=== PATIENT | male | born 1945 | race Caucasian/White ===

== ENCOUNTER 2023-09-29 06:34 | Inpatient (IN) ==
[2023-09-29] MEDS ORDERED: CEFEPIME 2,000 MG/20 ML VIAL IV STA (06:51)
--- NOTE | 2023-09-29 06:54 | Emergency Department Note ---
Impression & Plan Hypoxia, Lung cancer, Pleural effusion, Acidosis, lactic, LINDA (acute kidney injury) ED Provider Note NAME: ANI GARCIA AGE: 77 SEX: M : 1945 ARRIVES VIA: Ambulance INFORMANT: Patient ED PROVIDER(S): Raudel Flower DO CHIEF COMPLAINT: weakness HPI: Patient is a 77-year-old gentleman who presents to the ER for weakness with a past medical history of small cell lung cancer. Last dose of chemo was about a month ago. He had pleural effusion drained at [facility] within the last month. He notes the weakness has been getting worse today. He slid out of his chair and was unable to get himself back up. Denies any head strike. No head or neck pain. No chest pain but has shortness of breath which has been getting worse over a month. Denies any belly pain nausea vomiting or diarrhea. No dysuria urgency or frequency. He notes he has not been eating or drinking much at all. No fevers. ADDITIONAL HISTORY OBTAINED: Per HPI Chronic Medical/Social Conditions Affecting Care: Per HPI PAST MEDICAL HISTORY:See Below PAST SURGICAL HISTORY:See Below FAMILY HISTORY:See Below SOCIAL HISTORY:See Below HOME MEDICATIONS:See Below ALLERGIES:See Below VITALS:See Below PHYSICAL EXAMINATION: GENERAL: Sitting up in bed, alert, chronically ill-appearing, disheveled EYE EXAM: normal conjunctiva. OROPHARYNX: no exudate, no erythema, lips, buccal mucosa, and tongue normal and mucous membranes are moist NECK: supple, no nuchal rigidity, no adenopathy, non-tender LUNGS: Clear to auscultation. Normal chest wall mechanics HEART: no murmurs, S1 normal and S2 normal ABDOMEN: abdomen soft, non-tender, normo-active bowel sounds, no masses, no rebound or guarding. UPPER EXTREMITIES: upper extremities are grossly normal. LOWER EXTREMITIES: Pitting edema in the bilateral lower extremities NEURO EXAM: Normal sensorium, cranial nerves II-XII grossly intact, normal speech, no gross weakness of arms, no gross weakness of legs. MEDICAL DECISION MAKING: Patient is a 77-year-old male who presents the ER with a past medical history of A-fib, COPD and a solitary kidney for weakness and shortness of breath. Outpatient records reviewed which showed an EF of greater than 60% per 2 boys/[facility] records from cardiology. IV was established blood work was obtained. Labs show no significant leukocytosis but a mild anemia 11.5. We did have a recent blood transfusion. VBG with a pH of 7.23 and a CO2 of 51. BMP with a creatinine of 2.5 up from a baseline of about a 1.6. Lactate was significantly elevated at 3.8. T. bili at 1.3. LFTs were unremarkable. Troponin was negative. proBNP only at 460. Pro-Mahin was negative. UA was contaminated. Patient was given 2.5 L of normal saline. Systolic pressures trended up out of the 80s to the upper 90s. He was fluid responsive. Discussed case with Dr. Lord who evaluated the patient. Discussed case with Dr. Kaerns as well from the liquid flavor compounder/pulmonology standpoint. SBP 99/55 and improving with IV boluses at 0848. Pt was admitted at 0930. Please refer to Dr. Jalloh's note for further management and treatment. He was resting comfortably on 4 L. He is in no respiratory distress. Consults/Care Managements Discussions: Per [facility] Triage Nursing notes reviewed. Limited review of prior medical records performed Vital Signs: reviewed and remarkable for hypoxic Differential diagnosis: Differential diagnoses includes but is not limited to pneumonia, bronchitis, COPD/Asthma exacerbation, pneumothorax, pulmonary embolism, congestive heart failure, acute coronary syndrome ER treatment provided: See below Diagnostics interpreted by me include EKG and cardiac monitoring as listed below: -Cardiac Monitoring: An order was placed for continuous cardiac monitoring. The monitor shows a rate of 68 with sinus rhythm. -ECG: Sinus rhythm rate of 66 Low voltage Normal axis No PVCs QTc 457 -Laboratory studies:Interpreted by me as stated above in MDM and shown below. Imaging studies: Xrays: As interpreted by me: Portable upright 1 view of the chest shows complete opacification of right chest CTs show: none Procedures:none Critical Care: I have personally spent 31 minutes of critical care time in the direct management of this patient. This includes bedside care, interpretation of diagnostic studies, and testing, discussion with consultants, patient, and family members, and other required patient management activities. This 31 minutes is in excess of all separately billable procedures. Past Med/Surg History Medical History Insomnia DJD (degenerative joint disease) A-fib Arthritis H/O renal calculi Surgical History History of appendectomy S/p nephrectomy S/P lymph node biopsy S/P cataract surgery Family History Aunt Breast cancer Mother Heart disease Myocardial infarction Father Melanoma Denies family history of Ovarian cancer Prostate cancer Colorectal cancer Social History Smoking Status: Former smoker Tobacco Type: Cigarettes Age Started Using Tobacco: 19; Age Quit Using Tobacco: 61; packs per day: 2; Second Hand Exposure: No; Do You Dip or Chew Tobacco: No; Hx Alcohol Use: Yes Alcohol type: beer Alcohol Intake Frequency: Monthly or Less Hx Substance Use: No Preferred Language: Chinese Visual Impairment: No Limitations Hearing Ability: Normal marital status: / Current Living Situation: Family Current Living Situation Comment: lives with daughter How many Children do You have: 4 Feels Safe at Home: Yes Childhood Exposure to Second-Hand Smoke: No Diet: regular Diet Comment: low acidity Dental Care, Regularly: No Physical Activity Frequency: Does not Exercise Seatbelt Use: always Sunscreen Use: No Assistive Devices: Glasses Allergies Allergies Allergy/AdvReac Type Severity Reaction Status Date / Time No Known Drug Allergies Allergy Verified 09/09/23 13:43 Home Meds Home Medications Medication Instructions Recorded Confirmed allopurinol 100 mg tablet 100 mg PO DAILY 08/07/23 09/09/23 bisoprolol fumarate 5 mg tablet 10 mg PO DAILY 08/07/23 09/09/23 cholecalciferol (vitamin D3) 25 25 mcg PO DAILY 08/07/23 09/09/23 mcg (1,000 unit) capsule hydralazine 50 mg tablet 50 mg PO TID 08/07/23 09/09/23 hydrocodone 5 mg-acetaminophen 325 0.5 tab PO DAILY PRN 08/07/23 09/09/23 mg tablet tamsulosin 0.4 mg capsule 0.4 mg PO DAILY 08/07/23 09/09/23 mecobalamin (vitamin B12) 500 mcg mcg PO .qd 09/08/23 09/09/23 chewable tablet Previous Rx's Medication Instructions Recorded levalbuterol tartrate 45 See Rx Instructions inhalation 08/07/23 mcg/actuation aerosol inhaler .COMPLEX PRN shortness of breath (Xopenex HFA) or wheezing #15 grams umeclidinium 62.5 mcg-vilanterol 1 inh inhalation DAILY #60 ea 08/07/23 25 mcg/actuation powdr for inhalation (Anoro Ellipta) levothyroxine 50 mcg tablet 50 mcg PO DAILY #90 tabs 08/11/23 (Synthroid) hydrochlorothiazide 25 mg tablet 25 mg PO DAILY #90 tabs 08/14/23 valacyclovir 1 gram tablet 1,000 mg PO Q8H #21 tabs 08/14/23 (Valtrex) pantoprazole 40 mg tablet,delayed 40 mg PO BID #60 tabs 08/28/23 release cefdinir 300 mg capsule 300 mg PO BID 10 days #20 caps 09/09/23 amiodarone 200 mg tablet 200 mg PO BID #60 tabs 09/16/23 Results & Data (ED) Vital Signs Vital Signs - 24 hr 09/29/23 06:52 09/29/23 06:52 09/29/23 07:01 Temperature 36.3 C L Temperature Source Oral Pulse Rate 75 Pulse Rate [Apical] Respiratory Rate 26 H Respiratory Effort / Characteristics Short of Breath Respiratory Depth Respiratory Pattern Blood Pressure 94/48 L Blood Pressure [Left Arm] Blood Pressure [Right Arm] Blood Pressure Mean 63 Blood Pressure Mean [Left Arm] Blood Pressure Mean [Right Arm] Blood Pressure Position Semi-fowlers Blood Pressure Position [Left Arm] Blood Pressure Position [Right Arm] Pulse Oximetry 83 L 83 L 97 Oxygen Delivery Method Room Air Room Air Nasal Cannula Nasal Cannula Oxygen Flow Rate 0 4 Sepsis Recent Fever Within 48 Hours No Sepsis New/Unexplained Change in Mental Status N/A Sepsis Action Taken by Nursing Physician Notified Oxygen Flow Rate - Titration 4 Pulse Oximetry Post Tiitration 94 09/29/23 07:29 09/29/23 08:07 09/29/23 08:11 Temperature Temperature Source Pulse Rate 62 Pulse Rate [Apical] 60 61 Respiratory Rate 20 20 Respiratory Effort / Characteristics Non-Labored Spontaneous Non-Labored Spontaneous Respiratory Depth Normal Normal Respiratory Pattern Regular Regular Blood Pressure Blood Pressure [Left Arm] 83/56 L Blood Pressure [Right Arm] 90/50 L Blood Pressure Mean Blood Pressure Mean [Left Arm] 65 Blood Pressure Mean [Right Arm] 63 Blood Pressure Position Blood Pressure Position [Left Arm] Lying Blood Pressure Position [Right Arm] Lying Pulse Oximetry 94 93 Oxygen Delivery Method Nasal Cannula Nasal Cannula Oxygen Flow Rate 4 4 Sepsis Recent Fever Within 48 Hours Sepsis New/Unexplained Change in Mental Status Sepsis Action Taken by Nursing Oxygen Flow Rate - Titration Pulse Oximetry Post Tiitration 09/29/23 08:29 Temperature Temperature Source Pulse Rate Pulse Rate [Apical] 63 Respiratory Rate 20 Respiratory Effort / Characteristics Non-Labored Spontaneous Respiratory Depth Normal Respiratory Pattern Regular Blood Pressure Blood Pressure [Left Arm] 86/52 L Blood Pressure [Right Arm] Blood Pressure Mean Blood Pressure Mean [Left Arm] 63 Blood Pressure Mean [Right Arm] Blood Pressure Position Blood Pressure Position [Left Arm] Lying Blood Pressure Position [Right Arm] Pulse Oximetry 93 Oxygen Delivery Method Nasal Cannula Oxygen Flow Rate 4 Sepsis Recent Fever Within 48 Hours Sepsis New/Unexplained Change in Mental Status Sepsis Action Taken by Nursing Oxygen Flow Rate - Titration Pulse Oximetry Post Tiitration Laboratory Data 09/29/23 06:55 09/29/23 06:55 Lab Results 09/29/23 09/29/23 Range/Units 06:55 07:38 WBC 9.02 (4.8-10.8) K/ul RBC 3.91 L (4.70-6.10) M/uL Hgb 11.5 L (14.0-18.0) g/dl Hct 37.7 L (42.0-52.0) % MCV 96.4 (80.0-100.0) fL MCH 29.4 (25.0-34.0) pg MCHC 30.5 L (32.0-36.0) g/dL RDW Std Deviation 59.6 H (36.4-46.3) fL RDW Coeff of Dianne 17.2 H (11.5-14.5) % Plt Count 301 (130-400) K/uL MPV 10.3 (9.4-12.4) fL Immature Gran % (Auto) 1.0 % Neut % (Auto) 87.2 % Lymph % (Auto) 3.5 % [place] % (Auto) 8.1 % Eos % (Auto) 0.1 % Baso % (Auto) 0.1 % Neut # (Auto) 7.86 H (1.40-6.50) K/uL Lymph # (Auto) 0.32 L (1.20-3.40) K/uL [place] # (Auto) 0.73 H (0.11-0.59) K/uL Eos # (Auto) 0.01 (0.00-0.50) K/uL Baso # (Auto) 0.01 (0.00-0.20) K/uL Immature Gran # (Auto) 0.09 (0.01-0.20) K/uL Absolute Nucleated RBC 0.02 (0.00-0.12) K/uL Nucleated RBC % (auto) 0.2 % Sodium 141 (136-145) mmol/L Potassium 4.8 (3.5-5.1) mmol/L Chloride 101 (98-107) mmol/L Carbon Dioxide 25 (21-32) mmol/L Anion Gap 15 H (3-11) BUN 57 H (6-23) mg/dl Creatinine 2.52 H (0.6-1.4) mg/dl Est Cr Clr Drug Dosing 30.5 ml/min Est GFR ( Amer) 27.6 ml/min Est GFR (Non-Af Amer) 23.8 ml/min BUN/Creatinine Ratio 22.6 H (10-20) Glucose 94 (70-99(Fasting)) mg/dl Lactate 3.8 H* (0.4-2.0) mmol/L Calcium 10.5 H (8.6-10.3) mg/dl Magnesium 2.1 (1.7-2.4) mg/dl Total Bilirubin 1.3 H (0.2-1.0) mg/dl Direct Bilirubin 0.5 H (0-0.2) mg/dl AST 20 (13-39) U/L ALT 10 (7-52) U/L Alkaline Phosphatase 64 (34-104) U/L Troponin I High Sens 18.4 (0-20) pg/ml B-Natriuretic Peptide 463 H (0-100) pg/ml Total Protein 6.6 (6.0-8.3) gm/dl Albumin 3.5 (3.4-5.0) gm/dl Procalcitonin 0.10 (0-0.5) ng/ml Administered Medications Lactated Ringer's (Lr) 1,000 mls @ 80 mls/hr IV .[id number] AMANDA Stop: 09/30/23 10:07 Last Admin: 09/29/23 09:23 Dose: 80 mls/hr Documented By: CHELY Discontinued Medications Sodium Chloride (Nss) 1,000 mls @ 999 mls/hr IV .Q1H1M AMANDA Stop: 09/29/23 09:00 Last Infusion: 09/29/23 09:27 Dose: Infused Documented By: Admin: 09/29/23 08:24 Dose: 999 mls/hr Documented By: Infusion: 09/29/23 08:24 Dose: Infused Documented By: Admin: 09/29/23 07:17 Dose: 999 mls/hr Documented By: CHELY Cefepime HCl (Maxipime) 2,000 mg in 20 mls @ 5 mls/min IV NOW STA; Protocol Stop: 09/29/23 06:54 Last Admin: 09/29/23 07:48 Dose: 5 mls/min Documented By: CHELY Sodium Chloride (Nss) 500 mls @ 999 mls/hr IV .Q31M ONE Stop: 09/29/23 09:45 Last Admin: 09/29/23 09:23 Dose: 999 mls/hr Documented By: CHELY Imaging Data Radiologist's Impression: Chest X-Ray 09/29/23 06:51 XR chest 1V portable HISTORY: Sepsis COMPARISON: Outside hospital PET/CT 04/24/2023. FINDINGS: Interval development of complete opacification of the right hemithorax which favors a combi[place] of a large right pleural effusion and the patient's known right hilar/perihilar mass. Mild congestive change seen within the left lung. The heart is normal in size. There are calcifications within the aortic knob. No pneumothorax. IMPRESSION: Interval development of complete opacification of the right hemithorax likely due to combination of a large right pleural effusion and the patient's known right hilar/perihilar mass. ACT 112: Negative or not required by law. Electronically signed by: Cj Goode M.D. 09/29/2023 7:39 AM Discharge Plan Visit Data Chief Complaint: Weakness Stated Complaint: Weakness, Cancer, Hypotension ED Provider: Raudel Flower Discharge Problem: Hypoxia, Lung cancer, Pleural effusion, Acidosis, lactic, LINDA (acute kidney injury) Patient Disposition: Admitted As Inpatient Discharge Instructions Interventions: ED Discharge Assessment Last Done: 09/29/23 08:58 Discharge Problem: Lung cancer Qualifiers: Laterality: right Lung location: unspecified part of lung Qualified Code(s): C 34.91 - Malignant neoplasm of unspecified part of right bronchus or lung
[2023-09-29 07:17] LABS: Basophils # (auto) 0.01 K/uL (0.00-0.20); Basophils % (auto) 0.1 %; Eosinophils # (auto) 0.01 K/uL (0.00-0.50); Eosinophils % (auto) 0.1 %; Hematocrit (blood only) 37.7 % (42.0-52.0); Hemoglobin 11.5 g/dl (14.0-18.0); Immature Granulocytes # (auto) 0.09 K/uL (0.01-0.20); Lymphocytes # (auto) 0.32 K/uL (1.20-3.40); Lymphocytes % (auto) 3.5 %; Mean Corpuscular Hemoglobin 29.4 pg (25.0-34.0); Mean Corpuscular Hgb Conc 30.5 g/dL (32.0-36.0); Mean Corpuscular Volume 96.4 fL (80.0-100.0); Mean Platelet Volume 10.3 fL (9.4-12.4); Monocytes # (auto) 0.73 K/uL (0.11-0.59); Monocytes % (auto) 8.1 %; Neutrophils # (auto) 7.86 K/uL (1.40-6.50); Neutrophils % (auto) 87.2 %; Nucleated RBC # (auto) 0.02 K/uL (0.00-0.12); Nucleated RBC % (auto) 0.2 %; Platelet Count 301 K/uL (130-400); RDW Coefficient of Variation 17.2 % (11.5-14.5); RDW Standard Deviation 59.6 fL (36.4-46.3); Red Blood Count 3.91 M/uL (4.70-6.10); White Blood Count 9.02 K/ul (4.8-10.8)
[2023-09-29] MEDS: SODIUM CHLORIDE 0.9% 1,000 ML IV SCH ×2 (07:17→08:24)
[2023-09-29 07:33] LABS: Albumin Level 3.5 gm/dl (3.4-5.0); BUN Creatinine Ratio 22.6 (10-20); Bilirubin Direct 0.5 mg/dl (0-0.2); Bilirubin,Total 1.3 mg/dl (0.2-1.0); Calcium 10.5 mg/dl (8.6-10.3); Creatinine Clr Calc Pharmacy 30.5 ml/min; Est GFR (African American) 27.6 ml/min; Est GFR (Non-African American) 23.8 ml/min; Magnesium 2.1 mg/dl (1.7-2.4); Potassium 4.8 mmol/L (3.5-5.1); Total Protein 6.6 gm/dl (6.0-8.3)
[2023-09-29 07:41] LABS: Troponin I High Sensitivity 18.4 pg/ml (0-20)
--- NOTE | 2023-09-29 07:41 | XRay Report ---
XR chest 1V portable HISTORY: Sepsis COMPARISON: Outside hospital PET/CT 04/24/2023. FINDINGS: Interval development of complete opacification of the right hemithorax which favors a combi [place] of a large right pleural effusion and the patient's known right hilar/perihilar mass. Mild con gestive change seen within the left lung. The heart is normal in size. There are calcifications withi n the aortic knob. No pneumothorax. IMPRESSION: Interval development of complete opacification of the right hemithorax likely due to combination of a large right pleural effusion and the patient's known right hilar/perihilar mass. ACT 112: Negative or not required by law. Electronically signed by: Cj Goode M.D. 09/29/2023 7:39 AM
--- NOTE | 2023-09-29 08:52 | History & Physical Report ---
Date of Service September 29, 2023 Assessment & Plan (1) Acute hypoxic respiratory failure: Plan: Acute hypoxic respiratory failure, hypotension, metabolic acidosis with anion gap in a patient with a large plueral effusion. BP has been labile.Patient will require presures as not responding to fluid resuscitation. (2) Small cell lung cancer: Plan: large pleural effusion, likely representing poor prognosis. (3) LINDA (acute kidney injury): Plan: creatinine is elevated, likely prerenal. IVF (4) Metabolic acidosis: Plan: likely from LINDA IVF placred (5) Pleural effusion: Plan: large plueral effusion (6) Hypothyroidism: Plan: continue levothyroxin (7) Atrial fibrillation, chronic: Plan: on amiodarone at home. will contiue (8) Benign essential hypertension: Plan: hold home meds History of Present Illness Chief Complaint: weakness Primary Care Provider: Tarun Carrillo III, LITO This is a 77 yo male wo is a poor historian due to his difficulty to hearing. 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 Patient presents to the ED with weakness and SOB. Patient had a fall and was unable to return back to a chair. IN the ED, patient had labile blood pressure, lactic acidosis, metabolic acidosis with anion gap. Patient treated emipirically with antibioitcs and fluid resuscitation. ICU admission was called. Allergies Allergy/AdvReac Type Severity Reaction Status Date / Time No Known Drug Allergies Allergy Verified 09/29/23 17:14 Home Medications Medication Instructions Recorded Confirmed Type allopurinol 100 mg tablet 100 mg PO DAILY 08/07/23 09/29/23 History bisoprolol fumarate 5 mg tablet 10 mg PO DAILY 08/07/23 09/29/23 History cholecalciferol (vitamin D3) 25 0 mcg PO DAILY 08/07/23 09/29/23 History mcg (1,000 unit) capsule hydralazine 50 mg tablet 50 mg PO TID 08/07/23 09/29/23 History hydrocodone 5 mg-acetaminophen 325 0.5 tab PO DAILY PRN Pain 08/07/23 09/29/23 History mg tablet levalbuterol tartrate 45 See Rx Instructions inhalation 08/07/23 09/29/23 Rx mcg/actuation aerosol inhaler .COMPLEX PRN shortness of breath (Xopenex HFA) or wheezing #15 grams tamsulosin 0.4 mg capsule 0.4 mg PO DAILY 08/07/23 09/29/23 History umeclidinium 62.5 mcg-vilanterol 1 inh inhalation DAILY #60 ea 08/07/23 09/29/23 Rx 25 mcg/actuation powdr for inhalation (Anoro Ellipta) levothyroxine 50 mcg tablet 50 mcg PO DAILY #90 tabs 08/11/23 09/29/23 Rx (Synthroid) hydrochlorothiazide 25 mg tablet 25 mg PO DAILY #90 tabs 08/14/23 09/29/23 Rx pantoprazole 40 mg tablet,delayed 40 mg PO BID #60 tabs 08/28/23 09/29/23 Rx release mecobalamin (vitamin B12) 500 mcg 0 mcg PO DAILY 09/08/23 09/29/23 History chewable tablet amiodarone 200 mg tablet 200 mg PO BID #60 tabs 09/16/23 09/29/23 Rx Past Med/Surg History Medical History (Updated 09/30/23 @ 13:34 by Anais Woodward DNP) Advanced care planning/counseling discussion Palliative care by specialist Insomnia DJD (degenerative joint disease) A-fib Arthritis H/O renal calculi Surgical History History of appendectomy S/p nephrectomy 1964 S/P lymph node biopsy S/P cataract surgery bilateral Family History Aunt Breast cancer Mother Heart disease Myocardial infarction Father Melanoma Denies family history of Ovarian cancer Prostate cancer Colorectal cancer Social History Smoking Status: Former smoker Tobacco Type: Cigarettes Age Started Using Tobacco: 19; Age Quit Using Tobacco: 61; packs per day: 2; Second Hand Exposure: No; Do You Dip or Chew Tobacco: No; Hx Alcohol Use: Yes Alcohol type: beer Alcohol Intake Frequency: Monthly or Less Hx Substance Use: No Preferred Language: Indian Communication Ability: Effective Visual Impairment: No Limitations Hearing Ability: Normal Strategic Account Director Required: No Beliefs That Will Affect Care: Spiritual marital status: / Current Living Situation: Family Current Living Situation Comment: lives with daughter How many Children do You have: 4 Other Information That Helps Us Care for You: No Feels Safe at Home: Yes Safety Concerns: Feels Safe At This Time Childhood Exposure to Second-Hand Smoke: No Diet: regular Diet Comment: low acidity Dental Care, Regularly: No Physical Activity Frequency: Does not Exercise Seatbelt Use: always Sunscreen Use: No Assistive Devices: Walker Review of Systems Constitutional: no fever Eyes: no blind spots Ear, Nose, Mouth, Throat: as per Subjective / HPI and + hearing loss Respiratory: no cough Cardiovascular: no chest pain Gastrointestinal: no abdominal pain Genitourinary: no dysuria Musculoskeletal: + muscle weakness Integumentary: no acne Neurologic: + falls Psychiatric: no behavioral changes Endocrine: + fatigue Hematologic / Lymphatic: no easy bleeding Allergy / Immunological: no GI upset with certain foods Physical Exam Physical Exam: Patient is lying in bed. In mild acute distress. HEAD - NC/AT. EYES - PERRL with EOMI bilaterally. Sclera anicteric. MOUTH/OROPHARYNX - MMM NECK - supple/ LUNGS -using accessory muscles to breath, tachypnic, decreased breath sounds on bases. absent on right. CARDIAC - RRR with S1/S2. No murmur, rubs, or gallops are appreciated. ABDOMEN - BS+, NT, ND EXTREMITIES - Significant bilateral lower extremity edema noted NEUROLOGIC - No focal neurological deficits. Results & Data Results & Data Vital Signs (Past 12 Hours) Vital Signs Temp Pulse Pulse Resp BP BP BP 09/29/23 08:44 60 20 99/55 L 09/29/23 08:29 63 20 86/52 L 09/29/23 08:11 61 20 83/56 L 09/29/23 08:07 62 09/29/23 07:29 60 20 90/50 L 09/29/23 07:01 09/29/23 06:52 09/29/23 06:52 36.3 C L 75 26 H 94/48 L Pulse Ox O2 Del Method O2 Flow Rate 09/29/23 08:44 92 Nasal Cannula 4 09/29/23 08:29 93 Nasal Cannula 4 09/29/23 08:11 93 Nasal Cannula 4 09/29/23 08:07 09/29/23 07:29 94 Nasal Cannula 4 09/29/23 07:01 97 Nasal Cannula 4 09/29/23 06:52 83 L Room Air, Nasal Cannula 0 09/29/23 06:52 83 L Room Air PG Care Time/CCT Total # of Minutes Spent Total Time Spent with Patient: Total time spent is greater than 50% in coordination of care (as documented) at patient's floor/unit and/or counseling patient: Coding Level of Care Code 19689 INT INP/OBS CARE 3/75MIN Diagnoses Acute hypoxic respiratory failure J96.01 Small cell lung cancer C34.90 LINDA (acute kidney injury) N17.9 Metabolic acidosis E87.20 Pleural effusion J90 Hypothyroidism E03.9 Atrial fibrillation, chronic I48.20 Benign essential hypertension I10
[2023-09-29] MEDS ORDERED: SODIUM CHLORIDE 0.9% 500 ML IV ONE (09:15)
[2023-09-29] MEDS: LACTATED RINGER'S 1,000 ML IV SCH ×2 (09:23→22:22)
[2023-09-29 09:31] LABS: Appearance Urine Cloudy (Clear); Bilirubin Urine 2+ (Negative); Blood Urine 2+ (Negative); Color Urine Yellow; Glucose Urine UA Negative (Negative); Ketones Urine Trace (Negative); Leukocyte Esterase Urine 3+ (Negative); Nitrite Urine Negative (Negative); Protein Urine 3+ (Negative); Urobilinogen Urine Negative (Negative); pH Urine 7.5 (4.5-7.5)
[2023-09-29 09:42] LABS: Bacteria Urine 4+ (Negative); Epithelial Cell Urine 0-5 /lpf (0-5); Hyaline Casts Urine >30 /lpf (0-5); RBC Urine >30 /hpf (0-4); WBC Urine >30 /hpf (0-5)
[2023-09-29 09:54] LABS: Base Excess VBG -6.5 mEq/L; HCO3 VBG 21 mmol/L; Oxygen Saturation VBG 89.1 %; PCO2 VBG 51 mmHg (38-50); PO2 VBG 63 mmHg; pH VBG 7.23 (7.36-7.41)
--- NOTE | 2023-09-29 10:00 | Electrocardiogram Report ---
Test Reason : Blood Pressure : / mmHG Vent. Rate : 066 BPM Atrial Rate : 066 BPM P-R Int : 180 ms QRS Dur : 094 ms QT Int : 436 ms P-R-T Axes : 011 026 062 degrees QTc Int : 457 ms Normal sinus rhythm with sinus arrhythmia Low voltage QRS Nonspecific T wave abnormality Abnormal ECG No previous ECGs available Confirmed by Jackson Landis ([id number]) on 09/29/2023 10:00:00 AM Referred By: REFERRED SELF Confirmed By:Jackson Landis
[2023-09-29] MEDS ORDERED: STAT IV Infusion **Titration per Protocol STA ×2 (10:31→20:52)
[2023-09-29] MEDS: NOREPINEPHRINE/D5W 4 MG/250 ML PLCT IV SCH ×5 (10:40→23:38)
[2023-09-29] MEDS: UMECLIDINIUM/VILANTEROL 62.5/25MCG 7 PUFFS/INHALER INH SCH (11:45)
[2023-09-29] MEDS: ICU Protocol for HYPERglycemia SCH ×3 (11:46→21:19)
[2023-09-29] MEDS: PANTOprazole 40 MG in SYRINGE 0 ML IV SCH (12:19)
--- NOTE | 2023-09-29 13:21 | CT Scan Report ---
CT chest diagnostic wo con CT DOSE: 972.87 mGy.cm HISTORY: Abnormal chest x-ray. Shortness of breath. TECHNIQUE: Multiaxial CT images of the chest were performed without contrast. A dose lowering techni que was utilized adhering to the principles of ALARA. COMPARISON: Outside hospital PET CT 04/24/2023. FINDINGS: Interval development of a large right pleural effusion which completely opacifies the right hemithorax and results in complete compressive atelectasis of the right lung. Multiple right-sided p leural soft tissue deposits seen primarily at the right lung base consistent with metastatic disease. Dominant soft tissue deposits seen on image 248 mm 6.4 x 2.3 cm Limited views the upper abdomen demo nstrate normal liver and spleen. Upper abdominal lymphadenopathy has progressed with the dominant lym ph node measuring 5.1 cm. There is mild right retrocrural lymphadenopathy. Calcified plaque within th e normal caliber thoracic aorta. There is mild left distal shaft due to the right pleural effusion. T he heart is normal in size. No pericardial effusion. There is a trace left pleural effusion. Right la teral chest wall subcutaneous edema. Normal caliber esophagus. Interval progression of the mediastina l lymphadenopathy. The right hilar/mediastinal mass has also increased in size. This extends into the right perihilar lung. This mass measures approximately 12 cm in size. This results in complete obstr uction of the right mainstem bronchus and right-sided bronchi which is new compared the prior study. No suspicious lytic or blastic osseous lesions. Mild emphysema. Left basilar linear densities favor s ubsegmental atelectasis. IMPRESSION: 1. There is a large right malignant pleural effusion resulting in complete opacification of the right hemithorax with mild left mediastinal shift. 2. Interval progression of the right hilar/mediastinal mass and metastatic disease as described above . This includes the pleural metastatic disease which likely accounts for the right pleural effusion. 3. The right hilar/mediastinal mass results in complete obstruction of the right mainstem bronchus. T his is new compared the prior study. 4. Additional findings as described above. ACT 112: Negative or not required by law. Electronically signed by: Cj Goode M.D. 09/29/2023 1:19 PM
--- NOTE | 2023-09-29 15:24 | Procedure Note ---
Procedure Note Date of Service September 29, 2023 Note Procedure: Ultrasound guided right Pleurx catheter placement. Indication: Recurrent malignant effusion Consent: Signed by patient and verified with timeout prior to procedure. Anesthesia: 15 mL's 1% lidocaine without epinephrine locally. Cloth Shrinker: Dr. Hernan Kearns Procedure: The patient was in the intensive care unit. Standard monitoring was applied. Appropriate radiographic films had been reviewed prior to commencement of the procedure. Risks and benefits were again discussed with patient consent was verified. The patient was placed in the right side up lateral decubitus position. Limited thoracic ultrasound was performed which revealed a large free-flowing right effusion with compressive atelectasis. Site appropriate for the pleurotomy was marked. Skin was prepped and draped in normal sterile fashion. Using 1% lidocaine, the skin and soft tissues down to the pleura were anesthetized. A tract extending approximately 8 to 10 cm anteriorly from the pleurotomy site was also infiltrated and a site appropriate for the exit of the Pleurx catheter was marked. A 1 cm skin esperanza was made at the posterior site. The catheter over the needle apparatus was advanced into the pleural space with pleural fluid easily aspirated. A wire was passed through the catheter after the needle was removed. The Pleurx catheter was then loaded on the tunneling device. A 1cm skin incision was made at the anterior catheter exit site. The tunneling device with the attached Pleurx catheter were passed from the anterior incision back to the posterior incision until the cuff of the Pleurx catheter resided within the subcutaneous tissues. The catheter was palpated along its course and no kinking was identified. Serial dilatation was then performed over the wire with the pull-away catheter being left in place. The Pleurx was removed from the tunneling mechanism and advanced through the peel-away catheter. The catheter sheath was then peeled back as the Pleurx catheter was advanced into the pleural space. The Pleurx catheter course was palpated and no kinks were felt. It was attached to wall suction and a total of 2000 mL's of slightly opaque malick fluid was removed. Using 1-0 silk, 2 stitches were placed at the exit Pleurx site and the catheter secured in place. 3 small Vicryl sutures were used to close the posterior incision. A sterile dressing was applied. The patient tolerated the procedure well without obvious complication. Post procedure x-ray is pending. Estimated blood loss: Less than 10 mL's Will plan on draining the Pleurx catheter on a daily basis. Coding CPT Codes Pulmonary/Thoracic - Pulmonary and Thoracic: 35053 Insert pleural cathereter w/cuff ([id number]) Pulmonary/Thoracic - Pulmonary and Thoracic: 70666 US, Chest, real time with imaging documentation ([id number]) [facility] [place] (Charges) Pulmonary/Thoracic Procedure 1: Pulmonary and Thoracic: 70365 Insert pleural cathereter w/cuff Procedure 2: Pulmonary and Thoracic: 27370 US, Chest, real time with imaging document ation
--- NOTE | 2023-09-29 15:44 | XRay Report ---
XR chest 1V portable HISTORY: Right pleural effusion. S/P Thoracentesis COMPARISON: Chest 09/29/2023. FINDINGS: Interval placement of a right basilar pleural drain with decrease in size in the now partia lly loculated moderate right pleural effusion. There is a possible tiny right apical pneumothorax roberta ntified on image 1. However, this is not confirmed on image 2. Right hilar mass is better appreciated on the same day chest CTA. No left-sided pneumothorax. The heart is enlarged. No significant mediast inal shift at this time. There are calcifications within the aortic knob. No acute fractures. IMPRESSION: 1. Interval placement of right basilar pleural drain with decrease in size in the now moderate partia lly loculated right pleural effusion. 2. Possible tiny right apical pneumothorax. Attention at follow-up recommended. 3. A right hilar mass is better appreciated on the same day chest CT for ACT 112: Negative or not required by law. Electronically signed by: Cj Goode M.D. 09/29/2023 3:43 PM
[2023-09-29 15:46] LABS: Total Protein Pleural Fluid 3.8 gm/dl
[2023-09-29] MEDS ORDERED: ALBUT/IPRATROP 3MG/0.5MG NEB 3 ML VIAL INH PRN (15:47)
--- NOTE | 2023-09-29 15:47 | Critical Care Consultation ---
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 NEURO - * CAM ICU: NEGATIVE CARDIAC/VASCULAR - * Hypotension: * Patient was resuscitated with crystalloid in the emergency department. Unfortunately, the patient may remained persistently hypotensive. * Question if the patient may be experiencing degree of obstructive shock in the setting of large RIGHT-sided effusion with mediastinal shift compressing the RIGHT-sided heart. * Currently requiring low-dose Levophed. * Will see how hemodynamics improve with drainage of pleural effusion. * A-fib: * Appears to be in sinus rhythm at this time. * Appears to be on amiodarone at home. This could be restarted as blood pressure allows or consideration for parenteral dosing if needed. * Hypertension: * Hold antihypertension medication at this time. * Monitor on telemetry. RESPIRATORY - * Acute hypoxic respiratory failure: * Multifactorial in a patient with COPD, small cell lung cancer resulting in physical obstruction of the airway, and large pleural effusion. * Ideally, the patient would benefit from bronchoscopic evaluation to visualize the airway and assess if there is severe compression of the RIGHT-sided lung field resulting in his worsening dyspnea and hypoxia. Unfortunately, the patient's respiratory status is too tenuous at this time. At this point, we will proceed with thoracentesis to at least obtain fluid samples and see if the improvement in compression of the airway and lungs helps with aeration. * Continue with supplemental oxygen as needed. * Lung cancer: * Reviewed with radiation oncology. Consult radiation and medical oncology for recommendations. The patient was to undergo palliative chemotherapy on the . I question the patient stability to undergo at this point. Will defer this to medical oncology. With the bulkiness of the patient's tumor burden, he may benefit from palliative radiation therapy as well. Will defer this to their recommendation moving forward. * COPD: * As previously diagnosed. * Unable to review patient's outpatient pulmonary function testing or other pulmonary reports. 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 * Trend PRP. * Gentle IVF after aggressive IVF in the ED. * No significant electrolyte derangements. - * Petty in place - Strict I&Os. ENDO - * No h/o DMII * BSGs per unit protocol. ISS --> gtt per unit policy. * Continue with home Levothyroxine. HEME - * Stable H&H ID - * Uncertain of infectious component at this point. * Lactate was elevated which can be more related to ischemia in the setting of profound hypotension and has since resolved. * PCT unremarkable and with a negative WBC count. * Can likely hold on further antibiotic dosing for now. LINES/IV ACCESS - * PIVs x2 * Petty DVT PROPHYLAXIS - * Heparin * SCDs I have personally spent 45 minutes of critical care time in the direct management of this patient. This is a life/limb threatening event. This includes time spent evaluating patient, direct bedside care, chart review, placing orders, interpretation of diagnostic studies, discussion with consultants, patient, and family members, as well as other required patient management activities. This time is exclusive of all separately billable procedures, and teaching time and separate from and in addition to any other critical care service time. Thank you for allowing us to participate in the care of this patient. Please refer to my attending physician's documentation for any further recommendations. Supervising Physician Co-Signing Physician Notes Patient seen and examined. EMR reviewed. Discussed with JERRI and with patient. Reviewed with medical oncology as well as radiation oncology. The patient has advanced small cell lung cancer. He has completed a few cycles of palliative chemotherapy but appears to have radiographic progression. Will consult radiation oncology for consideration of palliative XRT to see if the lung can open up. Will place a Pleurx catheter to see if draining the effusion has any significant improvement in the patient's symptoms although with the airway being obstructed and lack of air in the lung, I am not sure this will offer him a clinical benefit. The patient should meet with palliative care. CODE STATUS does need to be readdressed in this patient. Will see if the patient's blood pressure improves with illumination of pressure on the heart. Send pleural fluid studies for microbiologic and cytologic analysis. Do not think the patient needs broad-spectrum antibiotics at this point in time History of Present Illness Reason for Consultation: hypotension, anion gap, lactic acidosis Requesting Physician: Dr. 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 The patient recently relocated from the [facility] where he has received majority of his care up until recently. He moved to be closer to family. Unfortunately, the patient presents today with worsening weakness and shortness of breath. The patient was having difficulty get himself back into a chair after a fall. He was resuscitated in the emergency department IV fluid and found to have an lactic acidosis. He received intravenous antibiotics. Unfortunately, his blood pressures remained relatively labile despite aggressive IV fluid resuscitation. Upon patient in the ICU, the patient is awake, alert, and oriented, however he is very hard of hearing. He complains of shortness of breath. HPI is otherwise difficult secondary to his difficulty with hearing. Allergies Allergy/AdvReac Type Severity Reaction Status Date / Time No Known Drug Allergies Allergy Verified 09/09/23 13:43 Home Medications Medication Instructions Recorded Confirmed Type allopurinol 100 mg tablet 100 mg PO DAILY 08/07/23 09/09/23 History bisoprolol fumarate 5 mg tablet 10 mg PO DAILY 08/07/23 09/09/23 History cholecalciferol (vitamin D3) 25 25 mcg PO DAILY 08/07/23 09/09/23 History mcg (1,000 unit) capsule hydralazine 50 mg tablet 50 mg PO TID 08/07/23 09/09/23 History hydrocodone 5 mg-acetaminophen 325 0.5 tab PO DAILY PRN 08/07/23 09/09/23 History mg tablet levalbuterol tartrate 45 See Rx Instructions inhalation 08/07/23 09/09/23 Rx mcg/actuation aerosol inhaler .COMPLEX PRN shortness of breath (Xopenex HFA) or wheezing #15 grams tamsulosin 0.4 mg capsule 0.4 mg PO DAILY 08/07/23 09/09/23 History umeclidinium 62.5 mcg-vilanterol 1 inh inhalation DAILY #60 ea 08/07/23 09/09/23 Rx 25 mcg/actuation powdr for inhalation (Anoro Ellipta) levothyroxine 50 mcg tablet 50 mcg PO DAILY #90 tabs 08/11/23 09/09/23 Rx (Synthroid) hydrochlorothiazide 25 mg tablet 25 mg PO DAILY #90 tabs 08/14/23 09/09/23 Rx valacyclovir 1 gram tablet 1,000 mg PO Q8H #21 tabs 08/14/23 09/09/23 Rx (Valtrex) pantoprazole 40 mg tablet,delayed 40 mg PO BID #60 tabs 08/28/23 09/09/23 Rx release mecobalamin (vitamin B12) 500 mcg mcg PO .qd 09/08/23 09/09/23 History chewable tablet cefdinir 300 mg capsule 300 mg PO BID 10 days #20 caps 09/09/23 Rx amiodarone 200 mg tablet 200 mg PO BID #60 tabs 09/16/23 Rx Patient History Medical History Insomnia DJD (degenerative joint disease) A-fib Arthritis H/O renal calculi Surgical History History of appendectomy S/p nephrectomy S/P lymph node biopsy S/P cataract surgery Family History Aunt Breast cancer Mother Heart disease Myocardial infarction Father Melanoma Denies family history of Ovarian cancer Prostate cancer Colorectal cancer Social History Smoking Status: Former smoker Tobacco Type: Cigarettes Age Started Using Tobacco: 19; Age Quit Using Tobacco: 61; packs per day: 2; Second Hand Exposure: No; Do You Dip or Chew Tobacco: No; Hx Alcohol Use: Yes Alcohol type: beer Alcohol Intake Frequency: Monthly or Less Hx Substance Use: No Preferred Language: Malay Communication Ability: Effective Visual Impairment: No Limitations Hearing Ability: Normal 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 Physical Exam Physical Exam: VITAL SIGNS - Vital signs and nursing notes were reviewed. GENERAL - 77-year-old male appearing his stated age who is in mild respira distress. SKIN - Without rashes. HEAD - NC/AT. EYES - PERRL with EOMI bilaterally. Sclera anicteric. MOUTH/OROPHARYNX - Without perioral cyanosis. NECK - Neck with FROM. LUNGS -slightly tachypneic. Absent breath sounds on the RIGHT. Diminished breath sounds on the LEFT. CARDIAC - RRR with S1/S2. No murmur, rubs, or gallops appreciated. ABDOMEN - Abdominal contour obese without pulsations or visible masses. BS normoactive all four quadrants. No tenderness, palpable masses, hepatosplenomegaly, or ascites noted. EXTREMITIES - Significant bilateral lower extremity edema appreciated. NEUROLOGIC - No focal neurological deficits. Results & Data Results & Data Vital Signs (Past 12 Hours) Vital Signs Temp Pulse Pulse Resp BP BP BP 09/29/23 14:30 66 15 09/29/23 14:30 94/67 L 09/29/23 14:00 66 24 09/29/23 14:00 98/59 L 09/29/23 13:30 67 23 09/29/23 13:00 107/66 09/29/23 13:00 67 24 09/29/23 12:44 68 15 09/29/23 12:44 79/40 L 09/29/23 12:42 69 20 09/29/23 12:00 67 15 89/48 L 09/29/23 11:30 84/38 L 09/29/23 11:30 63 16 09/29/23 11:21 36.0 C L 09/29/23 11:21 09/29/23 11:00 09/29/23 11:00 94/59 L 09/29/23 11:00 62 24 09/29/23 10:30 60 16 09/29/23 10:30 89/46 L 09/29/23 10:22 75/46 L 09/29/23 10:22 61 18 09/29/23 10:15 76 16 09/29/23 09:26 60 20 82/53 L 09/29/23 09:17 61 20 85/51 L 09/29/23 08:44 60 20 99/55 L 09/29/23 08:29 63 20 86/52 L 09/29/23 08:11 61 20 83/56 L 09/29/23 08:07 62 09/29/23 07:29 60 20 90/50 L 09/29/23 07:01 09/29/23 06:52 09/29/23 06:52 36.3 C L 75 26 H 94/48 L Pulse Ox O2 Del Method O2 Del Method O2 Flow Rate O2 Flow Rate 09/29/23 14:30 93 09/29/23 14:30 09/29/23 14:00 93 09/29/23 14:00 09/29/23 13:30 93 09/29/23 13:00 09/29/23 13:00 96 09/29/23 12:44 94 09/29/23 12:44 09/29/23 12:42 92 09/29/23 12:00 95 09/29/23 11:30 09/29/23 11:30 94 09/29/23 11:21 09/29/23 11:21 Nasal Cannula 6 09/29/23 11:00 Nasal Cannula 6 09/29/23 11:00 09/29/23 11:00 93 Nasal Cannula 6 09/29/23 10:30 94 09/29/23 10:30 09/29/23 10:22 09/29/23 10:22 90 09/29/23 10:15 91 09/29/23 09:26 92 Nasal Cannula 4 09/29/23 09:17 91 Nasal Cannula 4 09/29/23 08:44 92 Nasal Cannula 4 09/29/23 08:29 93 Nasal Cannula 4 09/29/23 08:11 93 Nasal Cannula 4 09/29/23 08:07 09/29/23 07:29 94 Nasal Cannula 4 09/29/23 07:01 97 Nasal Cannula 4 09/29/23 06:52 83 L Room Air, Nasal Cannula 0 09/29/23 06:52 83 L Room Air Coding Level of Care Code 48016 CRITICAL CARE 1ST 30-74M Diagnoses Pleural effusion J90 Small cell lung cancer C34.90 Hypoxia R09.02 Atrial fibrillation, chronic I48.20
[2023-09-29 16:29] LABS: Appearance Pleural Fluid Clear; Color Pleural Fluid Yellow; Lymphocytes, Fluid 40 %; Mono,Macrophage,Mesothelial 45 %; Neutrophils, Fluid 15 %; RBC Pleural Fluid Auto 3000 /uL; Source Pleural Fluid Right Lung; WBC Pleural Fluid Auto 137 /uL
[2023-09-29] MEDS ORDERED: ICU Protocol for HYPERglycemia SCH (16:30)
[2023-09-29 17:07] LABS: BUN Creatinine Ratio 23.2 (10-20); Calcium 9.1 mg/dl (8.6-10.3); Creatinine Clr Calc Pharmacy 31.2 ml/min; Est GFR (African American) 28.4 ml/min; Est GFR (Non-African American) 24.5 ml/min; Potassium 3.9 mmol/L (3.5-5.1)
--- NOTE | 2023-09-29 18:21 | XRay Report ---
SINGLE VIEW CHEST CLINICAL HISTORY: Hypoxia. FINDINGS: An AP, portable, upright chest radiograph is compared to chest x-ray and chest CT performed earlier the same day 09/29/2023. The examination is degraded by portable technique and apical lordoti c positioning. The cardiomediastinal silhouette is unremarkable noting atherosclerotic calcification of the thoracic aorta. There is a moderate residual right pleural effusion which tracks to the apex. The trace right apical pneumothorax question previously is not visualized. Airspace consolidation is now seen throughout the right lung, likely representing reexpansion edema. A small pleural effusion i s noted on the left with basilar atelectasis. The skeletal structures are osteopenic. The bony thorax is grossly intact. IMPRESSION: 1. Small to moderate residual right pleural effusion which tracks to the apex. The trace pneumothorax questioned previously is no longer identified. 2. Airspace consolidation has developed throughout the right lung, likely representing reexpansion pu lmonary edema. Clinical correlation will be required and radiographic follow-up to resolution is samia mmended. 3. Small left pleural effusion. ACT 112: Negative or not required by law. Electronically signed by: Tripp Castillo M.D. 09/29/2023 6:19 PM
[2023-09-29] MEDS ORDERED: FUROSEMIDE 40 MG/4 ML VIAL IV ONE (18:28)
[2023-09-29 21:02] LABS: iSTAT Allen Test Pass; iSTAT Art Bld Gas pCO2 Correct 55 mmHg (35-46); iSTAT Art Bld Gas pH Corrected 7.218 (7.35-7.45); iSTAT Arterial Blood Gas HCO3 23 meg/L (19-24); iSTAT Arterial Blood Gas pCO2 59 mmHg (35-46); iSTAT Arterial Blood Gas pO2 71 mmHg (80-95); iSTAT Arterial Blood Gas pO2 C 64; iSTAT Carbon Dioxide 25 mmol/L (24-31); iSTAT FiO2 75 %; iSTAT Hematocrit 37 % (42-52); iSTAT Hemoglobin 12.6 g/dl (14.0-18.0); iSTAT Potassium 3.6 mmol/L (3.3-5.0); iSTAT Site L Radial; iSTAT Sodium 139 mmol/L (135-144)
[2023-09-29] MEDS: VASOPRESSIN 20 UNITS in 0.9 % SODIUM CHLORIDE 100 ML IV SCH (21:06)
[2023-09-29] MEDS: CEFEPIME 2,000 MG in SYRINGE 0 ML IV SCH (21:06)
[2023-09-29] MEDS: HEPARIN SOD 5,000 UNIT/0.5 ML VIAL SQ SCH (21:19)
--- NOTE | 2023-09-29 22:43 | Procedure Note ---
Procedure Note Date of Service September 29, 2023 Note INTERNAL JUGULAR CENTRAL LINE PROCEDURE NOTE: Procedure: Internal Jugular Central Line Placement Attending: Dr. Kearns Provider: LITO Dias Indication: Central Drug Administration, Anesthesia: Lidocaine 1% Consent was signed and placed on the chart prior to procedure. Indication, risks, and benefits were explained at length. A time-out was completed verifying correct patient, procedure, site, positioning, and implants(s) or special equipment if applicable. Patients right neck was cleansed and draped in the typical sterile fashion using Chloraprep. The Internal Jugular Vein and Carotid Artery were identified using ultrasound. The superficial tissue was anesthetized using 3 mL of 1% lidocaine without epinephrine under direct visualization with the ultrasound. After adequate anesthetization was achieved, the Internal Jugular vein was cannulated under direct ultrasound guidance using an introducer needle on a syringe. Good venous blood return was maintained prior to removal of syringe from introducer needle. Using Seldinger Technique, a guide wire was advanced through the introducer needle without resistance. The introducer needle was removed and ultrasound images were obtained of the guide wire within the Internal Jugular Vein and saved to the patients medical record. A small incision was made in penetrating fashion at the guide wire insertion site utilizing an 11 blade scalpel. The dilator was advanced to the vessel without resistance. The dilator was exchanged for the triple lumen catheter which was advanced into the vessel without resistance. The guide wire was removed intact from the catheter without issue. Claves were placed on each catheter tip with confirmation of good blood flow from each lumen. Each port was easily flushed with sterile saline. The catheter was placed at 16 cm and sutured in place. BioPatch was applied to the catheter and a sterile Tegaderm dressing was applied over the catheter with careful attention to sterility. Patient tolerated procedure well. No immediate co mplications were met. Post procedure x-ray was completed, placement was appropriate and no pneumothorax was noted. Coding CPT Codes Tubes, Drains, and Vasc Access - Tubes, Drains, and Vasc Access: [id number] Insertion Of Non-tunneled Catheter Age 5 Yrs> ([id number]) Tubes, Drains, and Vasc Access - Tubes, Drains, and Vasc Access: [id number] U ltrasound Guidance For Vascular ([id number]) [facility] [place]Charges) Tubes, Drains, and Vasc Access Procedure 1: Tubes, Drains, and Vasc Access: [id number] Insertion Of Non-tunneled Catheter Age 6 Yrs> Procedure 2: Tubes, Drains, and Vasc Access: [id number] Ultrasound Guidance For Vascular
[2023-09-30 03:45] LABS: Hematocrit (blood only) 38.4 % (42.0-52.0); Hemoglobin 11.8 g/dl (14.0-18.0); Mean Corpuscular Hemoglobin 29.4 pg (25.0-34.0); Mean Corpuscular Hgb Conc 30.7 g/dL (32.0-36.0); Mean Corpuscular Volume 95.8 fL (80.0-100.0); Mean Platelet Volume 10.2 fL (9.4-12.4); Nucleated RBC # (auto) 0.05 K/uL (0.00-0.12); Nucleated RBC % (auto) 0.4 %; Platelet Count 291 K/uL (130-400); RDW Coefficient of Variation 16.9 % (11.5-14.5); RDW Standard Deviation 59.2 fL (36.4-46.3); Red Blood Count 4.01 M/uL (4.70-6.10)
[2023-09-30] MEDS: VASOPRESSIN 20 UNITS in 0.9 % SODIUM CHLORIDE 100 ML IV SCH ×3 (04:00→20:49)
[2023-09-30 04:07] LABS: iSTAT Allen Test Pass; iSTAT Art Bld Gas pCO2 Correct 55 mmHg (35-46); iSTAT Art Bld Gas pH Corrected 7.247 (7.35-7.45); iSTAT Arterial Blood Gas HCO3 24 meg/L (19-24); iSTAT Arterial Blood Gas pCO2 55 mmHg (35-46); iSTAT Arterial Blood Gas pH 7.24 (7.35-7.45); iSTAT Arterial Blood Gas pO2 79 mmHg (80-95); iSTAT Arterial Blood Gas pO2 C 78; iSTAT Carbon Dioxide 26 mmol/L (24-31); iSTAT FiO2 60 %; iSTAT Hematocrit 37 % (42-52); iSTAT Hemoglobin 12.6 g/dl (14.0-18.0); iSTAT Potassium 3.4 mmol/L (3.3-5.0); iSTAT Site L Radial; iSTAT Sodium 138 mmol/L (135-144)
[2023-09-30 04:20] LABS: Albumin Globulin Ratio 1.1 (0.9-2); Albumin Level 2.7 gm/dl (3.4-5.0); BUN Creatinine Ratio 23.9 (10-20); Bilirubin,Total 0.9 mg/dl (0.2-1.0); Creatinine Clr Calc Pharmacy 32.8 ml/min; Est GFR (African American) 30.2 ml/min; Globulin 2.5 gm/dl (2.5-4.0); Magnesium 1.8 mg/dl (1.7-2.4); Phosphorus 4.2 mg/dl (2.5-4.9); Potassium 3.5 mmol/L (3.5-5.1); Total Protein 5.2 gm/dl (6.0-8.3)
[2023-09-30] MEDS: NOREPINEPHRINE/D5W 4 MG/250 ML PLCT IV SCH ×7 (04:46→18:21)
[2023-09-30 04:51] LABS: Basophils # (auto) 0.02 K/uL (0.00-0.20); Basophils % (auto) 0.2 %; Immature Granulocytes % (auto) 0.8 %; Lymphocytes # (auto) 0.32 K/uL (1.20-3.40); Lymphocytes % (auto) 2.6 %; Monocytes # (auto) 0.77 K/uL (0.11-0.59); Monocytes % (auto) 6.2 %; Neutrophils # (auto) 11.29 K/uL (1.40-6.50); Neutrophils % (auto) 90.2 %
[2023-09-30] MEDS ORDERED: POTASSIUM CHLORIDE / WTR 20 MEQ/100 ML PLCT IV ONE (05:57)
[2023-09-30] MEDS: MAGNESIUM SULFATE / D5W 1 GM/100 ML BAG IV SCH ×2 (06:22→08:45)
--- NOTE | 2023-09-30 07:27 | XRay Report ---
XR chest 1V portable HISTORY: Respiratory failure. COMPARISON: Chest 09/29/2023. FINDINGS: The partially loculated small to moderate right pleural effusion is again noted. Consolidat ion throughout the right lung and mid to lower left lung is again noted. The left basilar consolidati on has progressed. This may represent reexpansion pulmonary edema. The heart remains mildly enlarged. There are calcifications within the aortic knob. The right hilar mass is better appreciated on the p rior chest CT. A right jugular central venous catheter terminates at the SVC. A right basilar pleural drain is unchanged in position. No definite pneumothorax. IMPRESSION: 1. The partially loculated small to moderate right pleural effusion is again noted. A right basilar p leural drain is unchanged in position. 2. No pneumothorax identified. 3. Consolidation within the right lung persists. Additional patchy airspace opacities within the left mid to lower lung zone have progressed. This may represent reexpansion pulmonary edema or aspiration pneumonia. 4. The right hilar mass is better appreciated on the recent chest CT. ACT 112: Negative or not required by law. Electronically signed by: Cj Goode M.D. 09/30/2023 7:24 AM
[2023-09-30] MEDS: ICU Protocol for HYPERglycemia SCH ×4 (08:31→21:45)
--- NOTE | 2023-09-30 08:37 | Critical Care Progress Note ---
Date of Service September 30, 2023 Assessment & Plan (1) Acute hypoxic respiratory failure: (2) Small cell lung cancer: (3) LINDA (acute kidney injury): (4) Pleural effusion: (5) A-fib: (6) Hypothyroidism: (7) Chronic obstructive pulmonary disease: (8) Solitary kidney, acquired: (9) Chronic gout: Plan Mr. Ren is a 77 y/o male with PMHx of Small Cell Lung Cancer, COPD, Solitary Kidney, A-fib, HTN, and gout who was admitted due to acute hypoxic respiratory failure with noted pleural effusions, and hypotension. NEURO: - Neurologically intact CARDIOVASCULAR: Hypotension -- Cause for hypotension unclear (e.g. low intravascular volume, cardiogenic, poor adrenergic activity). Dehydration not very likely given improved lactate after fluid resuscitation (3.8 --> 1.8). Patient had persistent hypotension despite fluid resuscitation in the ED and Norepinephrine 0.17 mcg/kg/min. Therefore, Central Line was placed and Vasopressin 0.04 unit/min was added. Today blood pressures have remained in >100 mmHg systolic with diastolic blood pressures remaining in the 50s mmHg, and MAP has remained > 65 mmHg. Labs showing low albumin, which may cause decreased intravascular volume due to low oncotic pressure. Will order albumin replacement. Will order TTE today A-Fib -- Telemetry showing patient has stayed in NSR. He does not refer having palpitations or any other symptom. May continue to hold home Amiodarone for now, and may consider continuing it given his vital signs remain stable and blood pressures continue to show improvement. HTN -- Continue to hold home antihypertensives Monitor on Telemetry. PULMONARY: Acute Hypoxic Respiratory Failure -- Likely due to poor ventilation consequent of right-sided pleural effusion, but history of COPD and small cell lung cancer may also play a role. Overnight the patient did develop pulmonary edema and had difficulty with respirations. He was given Lasix, and was switched over to BiPAP at 16/8 with FiO2 at 60%. Pleurex in place and had drained 1L overnight. Patient reporting improved respiration after removal of fluid, but still feeling SOB. Will do trial and remove BiPAP today with repeat ABG 2 hours after. Consider bronchoscopy to asses if there is compression of the right-sided lung field, once patient is more stable. Continue oxygen supplementation as needed. Small Cell Lung Cancer -- Radiation Oncology recommend palliative radiation. To evaluate patient's case in Multidisciplinary Tumor Board today. Medical oncology to evaluate appropriateness of systemic therapy. COPD -- Continue Anoro and Albuterol prn HEMATOLOGY: Hgb and Hct have remained stable. DVT ppx with Heparin ID: Lactate elevated on admission but has resolved (most recent is 1.8). U/A showing bacteriuria. Urine culture preliminary result showing Gram negative bacilli. Patient with history of recent urine culture growing Proteus sensitive to Ceftriaxone. Currently covered with Cefepime, which may be changed to Ceftriaxone depending on culture results. GI: History of GI bleed GI ppx with Protonix PO RENAL: Patient with history of solitary kidney. Creatinine elevated to 2.5 on admission (patient baseline ~ 1.6), which may be related to acute on chronic renal injury consequent of low blood pressures (re-renal?). Today Creatinine slightly improved (2.34). Urine output slightly improved with Lasix and addition of Vasopressin last night, but still suboptimal (0.36 mL/kg/hr). Continue gentle IVF and trending PRP. No electrolyte imbalances noted. ENDOCRINOLOGY: Continue home Levothyroxine LINES/DRAINS/ACCESS: Petty catheter, Pleurex, PIVs x2, Central Line CODE STATUS:Full Code Admission and Anticipated Discharge Date Admission Date: September 29, 2023 Supervising Physician Co-Signing Physician Notes Patient seen and examined. EMR reviewed. Discussed on multidisciplinary rounds and with bedside critical care nurse as well as with family practice resident. Agree with assessment and plan as noted above. Patient has likely malignant effusion. Cytology is pending. Lymphocytic exu date. He has had rapid reaccumulation and has had reexpansion pulmonary edema with rapid drainage so we will try and slow down drainage is much as possible. Hypotension of unclear etiology. Pending cortisol level. Check echocardiogram. Volume expansion with albumin. Unfortunately, this is a difficult case as the patient's performance status would preclude systemic chemotherapy. Not sure that he is in a condition currently to tolerate radiation therapy given his hypotension hypoxemic and hypercarbic respiratory failure. The tumor occludes the airway and impedes airway reexpansion and the effusion is accumulating so rapidly that even with an indwelling pleural drainage catheter, were having difficulty keeping the lung up. Is not able to oxygenate or ventilate at this point in time. Unclear goals and the patient. Advised him today that I do not think intubation or ACLS/CPR would offer him any benefit as these interventions would not treat his tumor which will continue to progress at a fairly rapid rate as he is not receiving any therapy. I recommended he reconsider his CODE STATUS and will have him meet with palliative care to discuss options moving forward. Proceeding to a comfort based approach would certainly be a reasonable alternative given the patient's advanced small cell lung cancer and inability to tolerate appropriate therapies currently. The patient has multiple life-threatening issues including hypotension requiring pressors, hypoxemic and hypercarbic respiratory failure, and advanced small cell lung cancer. A total of 50 minutes in critical care time was spent in evaluation management and stabilization of this patient exclusive of procedures. Subjective Mr. Ren is a 77 y/o male with PMHx of Small Cell Lung Cancer (dx on 05/2023) on chemotherapy with recent associated GI bleed due to a gastric ulcer, COPD, A- fib, HTN, Solitary kidney, and Gout that was admitted after experiencing progressive weakness and SOB. He was found to have right-sided pleural effusion and hypotension of uncertain origin (e.g. obstructive shock, infection/sepsis). He was admitted due to hypoxic respiratory failure and management of hypotension. Today he was evaluated at bedside and was found to be AAOx3, afebrile, responsive and able to answer questions, and in no acute distress. Patient refers he is able to breathe slightly better this morning. Review of Systems Constitutional: no fever, no chills and no sweats Ear, Nose, Mouth, Throat: History of difficulty hearing at baseline Respiratory: Patient reports slight improvement in his breathing Cardiovascular: no chest pain and no palpitations Gastrointestinal: no abdominal pain, no nausea and no vomiting Neurologic: as per Subjective / HPI Physical Exam Physical Exam: General: awake, alert, oriented in all spheres, afebrile, cooperative, able to answer questions, no acute distress Cardio: RRR, no r/m/g Respiratory: BiPAP, Rales heard bilaterally but more marked in right lung field, No respiratory distress GI: obese habitus, non-tender, positive bowel sounds, no ascites, no masses on palpation : positive Petty Extremities: bilateral +4 edema in lower extremities extending from patients feet to just below his knees relatively unchanged from yesterday's exam, no discoloration or tenderness in calf bilaterally; Mild swelling in bilateral upper extremities Integumentary: no rashes Results & Data Results & Data Vital Signs (Past 12 Hours) Vital Signs Temp Pulse Resp BP Pulse Ox FiO2 09/30/23 06:30 36.8 C 64 15 93 09/30/23 06:30 104/56 L 09/30/23 06:15 36.8 C 64 15 94 09/30/23 06:15 108/56 L 09/30/23 06:00 111/59 L 09/30/23 06:00 36.8 C 65 17 93 09/30/23 05:45 36.8 C 63 14 93 09/30/23 05:45 106/55 L 09/30/23 05:30 36.8 C 64 17 94 09/30/23 05:30 106/55 L 09/30/23 05:15 36.8 C 63 17 94 09/30/23 05:15 107/54 L 09/30/23 05:00 36.8 C 63 17 93 09/30/23 05:00 97/53 L 09/30/23 04:45 36.8 C 64 15 93 09/30/23 04:45 95/50 L 09/30/23 04:32 110/59 L 09/30/23 04:32 36.8 C 64 14 94 09/30/23 04:30 36.8 C 66 17 94 09/30/23 04:00 36.7 C 66 18 95 09/30/23 03:45 63 15 93 60 09/30/23 03:30 36.8 C 63 15 96 09/30/23 03:30 95/53 L 09/30/23 03:15 104/51 L 09/30/23 03:15 36.7 C 64 15 95 09/30/23 03:00 103/57 L 09/30/23 03:00 36.8 C 65 16 94 09/30/23 02:45 36.7 C 65 14 93 09/30/23 02:45 102/62 09/30/23 02:30 36.7 C 64 15 93 09/30/23 02:30 101/53 L 09/30/23 02:15 36.7 C 64 15 94 09/30/23 02:15 101/58 L 09/30/23 02:00 36.7 C 63 14 94 09/30/23 02:00 98/56 L 09/30/23 01:45 99/53 L 09/30/23 01:45 36.7 C 63 15 95 09/30/23 01:30 36.6 C 64 16 94 09/30/23 01:30 106/54 L 09/30/23 01:17 36.6 C 64 16 92 09/30/23 01:17 85/58 L 09/30/23 01:00 36.5 C 64 16 93 09/30/23 01:00 102/56 L 09/30/23 00:45 36.5 C 65 16 93 09/30/23 00:45 109/55 L 09/30/23 00:30 102/56 L 09/30/23 00:30 36.5 C 64 16 95 09/30/23 00:15 36.6 C 64 18 94 09/30/23 00:15 109/63 09/30/23 00:00 65 14 93 09/30/23 00:00 100/60 09/30/23 00:00 63 09/29/23 23:45 62 19 95 09/29/23 23:45 101/55 L 09/29/23 23:30 101/61 09/29/23 23:30 62 16 95 09/29/23 23:15 63 19 95 09/29/23 23:15 108/59 L 09/29/23 23:00 63 17 95 09/29/23 23:00 102/64 09/29/23 22:45 64 17 95 09/29/23 22:45 113/60 09/29/23 22:38 66 19 95 09/29/23 22:38 106/64 09/29/23 22:30 94/64 L 09/29/23 22:30 64 17 94 09/29/23 22:19 65 17 96 65 09/29/23 22:15 63 25 H 95 09/29/23 22:15 103/57 L 09/29/23 22:00 65 19 93 09/29/23 22:00 96/69 L 09/29/23 21:30 123/74 09/29/23 21:30 66 28 H 93 09/29/23 21:00 100/53 L 09/29/23 21:00 62 18 96 09/29/23 20:55 18 92 75 09/29/23 20:30 61 20 94 0129/24 20:30 100/52 L Critical Care Results & Data Vital Signs (Past 12 Hours) Vital Signs Temp Pulse Resp BP Pulse Ox O2 Del Method FiO2 09/30/23 09:00 36.8 C 65 17 93 09/30/23 09:00 BiPAP 50 09/30/23 08:46 36.9 C 67 22 91 09/30/23 08:46 123/69 09/30/23 08:45 36.9 C 67 21 91 09/30/23 08:31 36.9 C 68 24 84 L 09/30/23 08:31 120/58 L 09/30/23 08:30 36.9 C 67 28 H 85 L 09/30/23 08:16 36.8 C 65 14 93 09/30/23 08:16 110/66 09/30/23 08:15 36.8 C 66 21 95 09/30/23 08:00 36.8 C 64 16 95 09/30/23 08:00 108/57 L 09/30/23 08:00 60 09/30/23 07:45 36.8 C 66 16 94 09/30/23 07:35 66 25 H 94 50 09/30/23 07:30 36.8 C 64 14 94 09/30/23 07:30 106/57 L 09/30/23 07:15 36.8 C 66 17 94 09/30/23 07:15 108/57 L 09/30/23 07:00 103/66 09/30/23 07:00 36.8 C 66 22 93 09/30/23 06:45 105/56 L 09/30/23 06:45 36.7 C 65 14 94 09/30/23 06:30 36.8 C 64 15 93 09/30/23 06:30 104/56 L 09/30/23 06:15 36.8 C 64 15 94 09/30/23 06:15 108/56 L 09/30/23 06:00 111/59 L 09/30/23 06:00 36.8 C 65 17 93 09/30/23 05:45 36.8 C 63 14 93 09/30/23 05:45 106/55 L 09/30/23 05:30 36.8 C 64 17 94 09/30/23 05:30 106/55 L 09/30/23 05:15 36.8 C 63 17 94 09/30/23 05:15 107/54 L 09/30/23 05:00 36.8 C 63 17 93 09/30/23 05:00 97/53 L 09/30/23 04:45 36.8 C 64 15 93 09/30/23 04:45 95/50 L 09/30/23 04:32 110/59 L 09/30/23 04:32 36.8 C 64 14 94 09/30/23 04:30 36.8 C 66 17 94 09/30/23 04:00 36.7 C 66 18 95 09/30/23 03:45 63 15 93 60 09/30/23 03:30 36.8 C 63 15 96 09/30/23 03:30 95/53 L 09/30/23 03:15 104/51 L 09/30/23 03:15 36.7 C 64 15 95 09/30/23 03:00 103/57 L 09/30/23 03:00 36.8 C 65 16 94 09/30/23 02:45 36.7 C 65 14 93 09/30/23 02:45 102/62 09/30/23 02:30 36.7 C 64 15 93 09/30/23 02:30 101/53 L 09/30/23 02:15 36.7 C 64 15 94 09/30/23 02:15 101/58 L 09/30/23 02:00 36.7 C 63 14 94 09/30/23 02:00 98/56 L 09/30/23 01:45 99/53 L 09/30/23 01:45 36.7 C 63 15 95 09/30/23 01:30 36.6 C 64 16 94 09/30/23 01:30 106/54 L 09/30/23 01:17 36.6 C 64 16 92 09/30/23 01:17 85/58 L 09/30/23 01:00 36.5 C 64 16 93 09/30/23 01:00 102/56 L 09/30/23 00:45 36.5 C 65 16 93 09/30/23 00:45 109/55 L 09/30/23 00:30 102/56 L 09/30/23 00:30 36.5 C 64 16 95 09/30/23 00:15 36.6 C 64 18 94 09/30/23 00:15 109/63 09/30/23 00:00 65 14 93 09/30/23 00:00 100/60 09/30/23 00:00 63 09/29/23 23:45 62 19 95 09/29/23 23:45 101/55 L 09/29/23 23:30 101/61 09/29/23 23:30 62 16 95 09/29/23 23:15 63 19 95 09/29/23 23:15 108/59 L Lab & Micro Results (Past 24 Hours) RBC 4.01 M/uL (4.70-6.10) L 09/30/23 WBC 12.50 K/ul (4.8-10.8) H 09/30/23 Hgb 11.8 g/dl (14.0-18.0) L 09/30/23 Hct 38.4 % (42.0-52.0) L 09/30/23 MCV 95.8 fL (80.0-100.0) 09/30/23 MCH 29.4 pg (25.0-34.0) 09/30/23 MCHC 30.7 g/dL (32.0-36.0) L 09/30/23 RDW Standard Deviation 59.2 fL (36.4-46.3) H 09/30/23 RDW Coefficient of Variation 16.9 % (11.5-14.5) H 09/30/23 Plt Count 291 K/uL (130-400) 09/30/23 MPV 10.2 fL (9.4-12.4) 09/30/23 Nucleated Red Blood Cells % (auto) 0.4 % 09/30 Nucleated RBC Absolute Count (auto) 0.05 K/uL (0.00-0.12) 0 09/30/23 Neutrophils (%) (Auto) 90.2 % 09/30/23 Lymphocytes (%) (Auto) 2.6 % 09/30/23 Monocytes # (Auto) 0.77 K/uL (0.11-0.59) H 09/30/23 Eosinophils # (Auto) 0.00 K/uL (0.00-0.50) 09/30/23 Immature Granulocyte % (Auto) 0.8 % 09/30/23 Neutrophils # (Auto) 11.29 K/uL (1.40-6.50) H 09/30/23 Lymphocytes # (Auto) 0.32 K/uL (1.20-3.40) L 09/30/23 Monocytes # (Auto) 0.77 K/uL (0.11-0.59) H 09/30/23 Eosinophils # (Auto) 0.00 K/uL (0.00-0.50) 09/30/23 Basophils # (Auto) 0.02 K/uL (0.00-0.20) 09/30/23 Immature Granulocyte # (Auto) 0.10 K/uL (0.01-0.20) 4 Na 139 mmol/L (136-145) 09/30/23 K 3.5 mmol/L (3.5-5.1) 09/30/23 Cl 104 mmol/L (98-107) 09/30/23 CO2 25 mmol/L (21-32) 09/30/23 Anion Gap 10 (3-11) 09/30/23 BUN 56 mg/dl (6-23) H 09/30/23 Creatinine 2.34 mg/dl (0.6-1.4) H 09/30/23 Estimated GFR ( Amer) 30.2 ml/min 09/30/23 Estimated GFR (Non-Af Amer) 26.0 ml/min 09/30/23 BUN/Creatinine Ratio 23.9 (10-20) H 09/30/23 Glu 160 mg/dl (70-99(Fasting)) H 09/30/23 Ca 9.0 mg/dl (8.6-10.3) 09/30/23 Phosphorus Level 4.2 mg/dl (2.5-4.9) 09/30/23 Total Bilirubin 0.9 mg/dl (0.2-1.0) 09/30/23 AST 14 U/L (13-39) 09/30/23 ALT 8 U/L (7-52) 09/30/23 Alkaline Phosphatase 52 U/L (34-104) 09/30/23 TP 5.2 gm/dl (6.0-8.3) L 09/30/23 Albumin 2.7 gm/dl (3.4-5.0) L 09/30/23 Globulin 2.5 gm/dl (2.5-4.0) 09/30/23 Albumin/Globulin Ratio 1.1 (0.9-2) 09/30/23 Mg 1.8 mg/dl (1.7-2.4) 09/30/23 03:25 Calcium Level 9.0 mg/dl (8.6-10.3) 09/30/23 03:25 Qamar Test Pass 09/30/23 03:43 Microbiology 09/29/23 09:10 Urine Culture - Preliminary Urine,Straight Cath Gram negative bacilli Gram positive cocci 09/29/23 07:38 Aerobic Blood Culture - Preliminary Blood No growth in Aerobic bottle after 24 hours. Anaerobic Blood Culture - Preliminary No growth in Anaerobic bottle after 24 hours. 09/29/23 06:55 Aerobic Blood Culture - Preliminary Blood No growth in Aerobic bottle after 24 hours. Anaerobic Blood Culture - Preliminary No growth in Anaerobic bottle after 24 hours. 09/29/23 Unknown Gram Stain - Final Pleural Fluid,Right Diagnostic Findings (Past 24 Hours) Chest CT 09/29/23 10:31 CT chest diagnostic wo con CT DOSE: 972.87 mGy.cm HISTORY: Abnormal chest x-ray. Shortness of breath. TECHNIQUE: Multiaxial CT images of the chest were performed without contrast. A dose lowering technique was utilized adhering to the principles of ALARA. COMPARISON: Outside hospital PET CT 04/24/2023. FINDINGS: Interval development of a large right pleural effusion which completely opacifies the right hemithorax and results in complete compressive atelectasis of the right lung. Multiple right-sided pleural soft tissue deposits seen primarily at the right lung base consistent with metastatic disease. Dominant soft tissue deposits seen on image 248 mm 6.4 x 2.3 cm Limited views the upper abdomen demonstrate normal liver and spleen. Upper abdominal lymphadenopathy has progressed with the dominant lymph node measuring 5.1 cm. There is mild right retrocrural lymphadenopathy. Calcified plaque within the normal caliber thoracic aorta. There is mild left distal shaft due to the right pleural effusion. The heart is normal in size. No pericardial effusion. There is a trace left pleural effusion. Right lateral chest wall subcutaneous edema. Normal caliber esophagus. Interval progression of the mediastinal lymphadenopathy. The right hilar/mediastinal mass has also increased in size. This extends into the right perihilar lung. This mass measures approximately 12 cm in size. This results in complete obstruction of the right mainstem bronchus and right-sided bronchi which is new compared the prior study. No suspicious lytic or blastic osseous lesions. Mild emphysema. Left basilar linear densities favor subsegmental atelectasis. IMPRESSION: 1. There is a large right malignant pleural effusion resulting in complete opacification of the right hemithorax with mild left mediastinal shift. 2. Interval progression of the right hilar/mediastinal mass and metastatic disease as described above. This includes the pleural metastatic disease which likely accounts for the right pleural effusion. 3. The right hilar/mediastinal mass results in complete obstruction of the right mainstem bronchus. This is new compared the prior study. 4. Additional findings as described above. ACT 112: Negative or not required by law. Electronically signed by: Cj Goode M.D. 09/29/2023 1:19 PM Chest X-Ray 09/29/23 15:13 XR chest 1V portable HISTORY: Right pleural effusion. S/P Thoracentesis COMPARISON: Chest 09/29/2023. FINDINGS: Interval placement of a right basilar pleural drain with decrease in size in the now partially loculated moderate right pleural effusion. There is a possible tiny right apical pneumothorax identified on image 1. However, this is not confirmed on image 2. Right hilar mass is better appreciated on the same day chest CTA. No left-sided pneumothorax. The heart is enlarged. No significant mediastinal shift at this time. There are calcifications within the aortic knob. No acute fractures. IMPRESSION: 1. Interval placement of right basilar pleural drain with decrease in size in the now moderate partially loculated right pleural effusion. 2. Possible tiny right apical pneumothorax. Attention at follow-up recommended. 3. A right hilar mass is better appreciated on the same day chest CT for ACT 112: Negative or not required by law. Electronically signed by: Cj Goode M.D. 09/29/2023 3:43 PM Chest X-Ray 09/29/23 17:43 SINGLE VIEW CHEST CLINICAL HISTORY: Hypoxia. FINDINGS: An AP, portable, upright chest radiograph is compared to chest x-ray and chest CT performed earlier the same day 09/29/2023. The examination is degraded by portable technique and apical lordotic positioning. The cardiomediastinal silhouette is unremarkable noting atherosclerotic calcification of the thoracic aorta. There is a moderate residual right pleural effusion which tracks to the apex. The trace right apical pneumothorax question previously is not visualized. Airspace consolidation is now seen throughout the right lung, likely representing reexpansion edema. A small pleural effusion is noted on the left with basilar atelectasis. The skeletal structures are osteopenic. The bony thorax is grossly intact. IMPRESSION: 1. Small to moderate residual right pleural effusion which tracks to the apex. The trace pneumothorax questioned previously is no longer identified. 2. Airspace consolidation has developed throughout the right lung, likely representing reexpansion pulmonary edema. Clinical correlation will be required and radiographic follow-up to resolution is recommended. 3. Small left pleural effusion. ACT 112: Negative or not required by law. Electronically signed by: Tripp Castillo M.D. 09/29/2023 6:19 PM Chest X-Ray 09/29/23 21:51 SINGLE VIEW CHEST CLINICAL HISTORY: Central venous catheter placement. FINDINGS: An AP, portable, upright chest radiograph is compared to chest x-rays and chest CT performed earlier the same day 09/29/2023. The examination is degraded by portable technique and apical lordotic positioning. A right internal jugular central venous catheter has been placed. The tip projects over the SVC. The cardiomediastinal silhouette is unremarkable noting atherosclerotic calcification of the thoracic aorta. There is near complete opacification of the right hemithorax which has significantly progressed from previous. This likely represents pleural effusion and pulmonary edema. No pneumothorax is identified. There are increasing airspace opacities throughout the left lung. A small pleural effusion is again noted. The skeletal structures are osteopenic. The bony thorax is grossly intact. IMPRESSION: 1. A right internal jugular central venous catheter has been placed. No pneumothorax is identified. 2. There is near complete opacification of the right hemithorax which has increased from previous. This likely represents a combination of pleural effusion and pulmonary edema. 3. There are developing airspace opacities in the left lung, also likely desk representative pulmonary edema. Correlate clinically. 4. A small left pleural effusion is again noted. ACT 112: Negative or not required by law. Electronically signed by: Tripp Castillo M.D. 09/30/2023 8:39 AM Chest X-Ray 09/30/23 07:00 XR chest 1V portable HISTORY: Respiratory failure. COMPARISON: Chest 09/29/2023. FINDINGS: The partially loculated small to moderate right pleural effusion is again noted. Consolidation throughout the right lung and mid to lower left lung is again noted. The left basilar consolidation has progressed. This may represent reexpansion pulmonary edema. The heart remains mildly enlarged. There are calcifications within the aortic knob. The right hilar mass is better appreciated on the prior chest CT. A right jugular central venous catheter terminates at the SVC. A right basilar pleural drain is unchanged in position. No definite pneumothorax. IMPRESSION: 1. The partially loculated small to moderate right pleural effusion is again noted. A right basilar pleural drain is unchanged in position. 2. No pneumothorax identified. 3. Consolidation within the right lung persists. Additional patchy airspace opacities within the left mid to lower lung zone have progressed. This may represent reexpansion pulmonary edema or aspiration pneumonia. 4. The right hilar mass is better appreciated on the recent chest CT. ACT 112: Negative or not required by law. Electronically signed by: Cj Goode M.D. 09/30/2023 7:24 AM I & O Totals 24 Hours 09/29/23 09/30/23 10/01/23 06:59 06:59 06:59 Intake Total 4488.690 / 4488.690 759.053 / 759.053 Output Total 4285 / 4285 250 / 250 Balance 203.690 / 203.690 509.053 / 509.053 Cumulative 09/29/23 06:28 thru 09/30/23 10:40 Intake Total 5247.743 Output Total 4535 Balance 712.743 RT Ventilator Mngmt (Last Documented) Ventilator Ordered Settings Respiratory Rate 17 09/30/23 09:00 Fraction of Inspired Oxygen 50 09/30/23 09:00 Ventilator - PT Measurements Respiratory Rate 17 Coding Level of Care Code 45700 CRITICAL CARE 1ST 30-74M Diagnoses Acute hypoxic respiratory failure J96.01 Small cell lung cancer C34.90 LINDA (acute kidney injury) N17.9 Pleural effusion J90 A-fib I48.91 Hypothyroidism E03.9 Chronic obstructive pulmonary disease, unspecified COPD type J44.9 COPD type: unspecified COPD Solitary kidney, acquired Z90.5 Chronic gout without tophus, unspecified cause, unspecified site [id number] Gout etiology: unspecified cause Gout site: unspecified site Presence of tophus: without tophus (7) Chronic obstructive pulmonary disease COPD type: unspecified COPD Qualified Code(s): J44.9 - Chronic obstructive pulmonary disease, unspecified (9) Chronic gout Gout etiology: unspecified cause Gout site: unspecified site Presence of tophus: without tophus Qualified Code(s): [id number].[id number] - Chronic gout, unspecified, without tophus (tophi)
--- NOTE | 2023-09-30 08:40 | XRay Report ---
SINGLE VIEW CHEST CLINICAL HISTORY: Central venous catheter placement. FINDINGS: An AP, portable, upright chest radiograph is compared to chest x-rays and chest CT performe d earlier the same day 09/29/2023. The examination is degraded by portable technique and apical lordot ic positioning. A right internal jugular central venous catheter has been placed. The tip projects ov er the SVC. The cardiomediastinal silhouette is unremarkable noting atherosclerotic calcification of the thoracic aorta. There is near complete opacification of the right hemithorax which has significan tly progressed from previous. This likely represents pleural effusion and pulmonary edema. No pneumot horax is identified. There are increasing airspace opacities throughout the left lung. A small pleura l effusion is again noted. The skeletal structures are osteopenic. The bony thorax is grossly intact. IMPRESSION: 1. A right internal jugular central venous catheter has been placed. No pneumothorax is identified. 2. There is near complete opacification of the right hemithorax which has increased from previous. Th is likely represents a combination of pleural effusion and pulmonary edema. 3. There are developing airspace opacities in the left lung, also likely auto claim representative pulmonary maeve ma. Correlate clinically. 4. A small left pleural effusion is again noted. ACT 112: Negative or not required by law. Electronically signed by: Tripp Castillo M.D. 09/30/2023 8:39 AM
[2023-09-30] MEDS: CEFEPIME 2,000 MG in SYRINGE 0 ML IV SCH ×2 (08:45→20:07)
[2023-09-30] MEDS: UMECLIDINIUM/VILANTEROL 62.5/25MCG 7 PUFFS/INHALER INH SCH (08:46)
[2023-09-30] MEDS: HEPARIN SOD 5,000 UNIT/0.5 ML VIAL SQ SCH ×2 (08:46→20:06)
[2023-09-30] MEDS: ALBUMIN 25% 25 GM/100 ML VIAL IV SCH ×2 (08:55→10:34)
[2023-09-30] MEDS ORDERED: ALBUMIN 5% 250 ML IV ONE (09:09)
[2023-09-30] MEDS: PANTOprazole 40 MG in SYRINGE 0 ML IV SCH (10:32)
[2023-09-30] MEDS ORDERED: GLUCAGON FOR INJ 1 MG VIAL SQ PRN (11:09)
[2023-09-30] MEDS ORDERED: DEXTROSE 50% 50 ML SYRINGE IV PRN (11:09)
[2023-09-30] MEDS ORDERED: GLUCOSE 10 TAB/TUBE PO PRN (11:09)
[2023-09-30] MEDS ORDERED: CARBOHYDRATES FOR HYPOGLYCEMIA PO PRN (11:09)
[2023-09-30] MEDS ORDERED: GLUCOSE 40% GEL 15 GM TUBE PO PRN (11:09)
[2023-09-30] MEDS: INSULIN ASPART PER UNIT CHARGE SC SCH ×3 (11:45→20:07)
--- NOTE | 2023-09-30 12:31 | XCELERA ---
[id number] \\ISCV-[email or web address]\[id number]
--- NOTE | 2023-09-30 12:36 | Palliative Care Consultation ---
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 Dr Kearns provided an overview of his critical illness. He is steadily declining, now on HFNC + 2 pressors + Abtx + pleurx placed and fluid very rapidly reaccumulating. The tumor is rapidly progressing and obstructing his lung along with possibly wrapping around blood vessels (Chest CT 09/29/23: The right hilar/mediastinal mass has also increased in size. This extends into the right perihilar lung. This mass measures approximately 12 cm in size. This results in complete obstruction of the right mainstem bronchus and right-sided bronchi which is new compared the prior study.) Dr Kearns expressed concerns that pt may not survive this admission. Dr Moyer reviewed the cancer progression and difficulty pt has had tolerating chemo. He has a steadily declining PS and has not been able to resume chemo. His weakness has been steadily worsening. He is not a candidate for chemo with this cancer in this condition with these progressive issues. This is not a curable cancer and survival may be in days to weeks, we are unsure he will reach discharge to be able to return home much less resume chemo. One of his daughters expressed desire to push for chemo because that is what they want. Dr Moyer reviewed it is not safe and could not be given - Dr Kearns noted pt has an active infection which is requiring 2 pressors to maintain hemodynamics along with 100% HFNC. This is in no way a safe situation for systemic chemo. I expressed my concerns about multi organ failure which is worsening in spite of escalated therapies and interventions: he is now maxed on HFNC 100% FiO2, he has one kidney and it is demonstrating LINDA on CKD, he has known COPD and a rapidly progressing lung cancer with hypox resp failure + complete obstruction of the right mainstem bronchus. His cancer is very rapidly evolving, chemo will not catch up to it and this is not a curable cancer. I shared my worry that we are seeing him beginning to transition from a process of living to a process of dying. Pt states "I understand what you're all telling me, do what you can to make me better but if you can't well I know" We asked pt and family to take some time to discuss everything we reviewed and we will follow up. Code status was not discussed bt can be revisited at a future discussion. CCM had code discussion with pt earlier today but he is not ready to change to no code. (6) Palliative care by specialist: Met with pt/family. Provided overview of Palliative Medicine, a subspecialty that provides specialized medical care for people living with a serious illness by offering a focus on quality of life. Palliative Medicine is often conflated with hospice: I advised patient/family that Palliative and hospice can be partners but we are not the same. It is important to understand the difference so that we may be informed, and not afraid. We discussed that cancer patients experience significant symptom and psychosocial burden for which the early integration of supportive oncology with palliative medicine (early findings from the research of John and Alonzo) help address a growing need to manage patients comprehensively, with an emphasis on symptom control, nutritional and psychosocial support, and pharmaceutical review. Palliative care consultation in patients with advanced cancer is not only associated with an improvement in the quality of oncology care, but also a reduction in downstream healthcare utilization. In Ken et al 2017, when the automatic palliative medicine consult was triggered by specific oncology criteria, 30-day readmission rates and use of chemotherapy after discharge declined, whereas hospice referrals and uptake of support services post-discharge increased. Patients with advanced cancer admitted to an acute care hospital often have short life expectancies and high morbidity - for these patients, the integration of palliative care has improved symptom burden, reduced patient and caregiver distress, increased referral to hospice, and improved outcomes.There is strong evidence supporting the initiation of Palliative Care into the management of this patient with advanced met lung cancer; palliative care, when provided alongside oncologic care, leads to improved QOL, fewer depressive symptoms, better prognosis unders tanding and longer median survival shalom when given the overall poor prognosis and QOL issues at hand. (John et al. (2010). Early palliative care for patients with metastatic [id number] lung cancer. [place] J of Med 363(9), 733- [phone]. Doi: [id number].) (7) Small cell lung cancer: (8) Acute hypoxic respiratory failure: (9) Pleural effusion: (10) Chronic obstructive pulmonary disease: COPD type: unspecified COPD Qualified Code(s): J44.9 - Chronic obstructive pulmonary disease, unspecified (11) Solitary kidney, acquired: Plan See above Thank you for allowing us to participate in the ongoing care of this patient. Please don't hesitate to call or page with any additional concerns. Dr. Anais Woodward [facility] Director, Palliative Care History of Present Illness Reason for Consultation: On 09/30/23 @ 08:49 Hernan Kearns Wrote To Anais Woodward small cell lung cancer Attending Physician: Gómez Thomas History of Present Illness Gurvinder is a Patient is a 77yo male who came to [facility] ED last night with c/o weakness. Found to have hypoxic respiratory failure with large RIGHT-sided effusion with mediastinal shift compressing the RIGHT-sided heart. he has +small cell lung cancer diagnosed May 2023, last chemo about 3-4 weeks ago. Recently had a pleural effusion drained at [facility]. Hx COPD/former smoker, HTN, A Fib, recent GIB, LINDA on CKD (has a solitary kidney) He c/o progressive weakness which on day of admission became profound: he slid out of his chair and was unable to get himself back up. He denies LOC. +dyspnea which he feels has been worsening for a month. Denies abd pain, no n/v/d. States appetite on a decline, not taking much PO Workup in ED: VBG with a pH of 7.23, CO2 of 51. BMP with creatinine 2.5 up from baseline 1.6. Lactate significantly elevated at 3.8. T. bili at 1.3. LFTs unremarkable. Troponin negative. proBNP WAL at 460. PCT negative. UA contaminated. He was given 2.5 L of normal saline with hemodynamic improvement. He was given cefepime IV [facility] consult with thoracentesis Rad Onc consulted for palliative RT - not likely to offer signif benefit Pt has had few cycles of palliative chemotherapy but appears to have radiographic progression. A Pleurx catheter was placed. [facility] noted "CODE STATUS does need to be readdressed in this patient. Will see if the patient's blood pressure improves with illumination of pressure on the hear t. Send pleural fluid studies for microbiologic and cytologic analysis. Do not think the patient needs broad-spectrum antibiotics at this point in time." Tumor appears to be progressing rapidly and pt is demonstrating concomitant PS decline. His fluid reaccumulates in very short order. Unfortunately he has not improved despite escalating interventions He is currently requiring two pressors He is on 100% high flow nasal cannula from prior NC and BiPAP He remains a full code There is concern is insight is limited. Allergies Allergy/AdvReac Type Severity Reaction Status Date / Time No Known Drug Allergies Allergy Verified 09/29/23 17:14 Home Medications Medication Instructions Recorded Confirmed Type allopurinol 100 mg tablet 100 mg PO DAILY 08/07/23 09/29/23 History bisoprolol fumarate 5 mg tablet 10 mg PO DAILY 08/07/23 09/29/23 History cholecalciferol (vitamin D3) 25 0 mcg PO DAILY 08/07/23 09/29/23 History mcg (1,000 unit) capsule hydralazine 50 mg tablet 50 mg PO TID 08/07/23 09/29/23 History hydrocodone 5 mg-acetaminophen 325 0.5 tab PO DAILY PRN Pain 08/07/23 09/29/23 History mg tablet levalbuterol tartrate 45 See Rx Instructions inhalation 08/07/23 09/29/23 Rx mcg/actuation aerosol inhaler .COMPLEX PRN shortness of breath (Xopenex HFA) or wheezing #15 grams tamsulosin 0.4 mg capsule 0.4 mg PO DAILY 08/07/23 09/29/23 History umeclidinium 62.5 mcg-vilanterol 1 inh inhalation DAILY #60 ea 08/07/23 09/29/23 Rx 25 mcg/actuation powdr for inhalation (Anoro Ellipta) levothyroxine 50 mcg tablet 50 mcg PO DAILY #90 tabs 08/11/23 09/29/23 Rx (Synthroid) hydrochlorothiazide 25 mg tablet 25 mg PO DAILY #90 tabs 08/14/23 09/29/23 Rx pantoprazole 40 mg tablet,delayed 40 mg PO BID #60 tabs 08/28/23 09/29/23 Rx release mecobalamin (vitamin B12) 500 mcg 0 mcg PO DAILY 09/08/23 09/29/23 History chewable tablet amiodarone 200 mg tablet 200 mg PO BID #60 tabs 09/16/23 09/29/23 Rx Patient History Medical History (Updated 09/30/23 @ 13:34 by Anais Woodward DNP) Advanced care planning/counseling discussion Palliative care by specialist Insomnia DJD (degenerative joint disease) A-fib Arthritis H/O renal calculi Surgical History History of appendectomy S/p nephrectomy 1964 S/P lymph node biopsy S/P cataract surgery bilateral Family History Aunt Breast cancer Mother Heart disease Myocardial infarction Father Melanoma Denies family history of Ovarian cancer Prostate cancer Colorectal cancer Social History Smoking Status: Former smoker Tobacco Type: Cigarettes Age Started Using Tobacco: 19; Age Quit Using Tobacco: 61; packs per day: 2; Second Hand Exposure: No; Do You Dip or Chew Tobacco: No; Hx Alcohol Use: Yes Alcohol type: beer Alcohol Intake Frequency: Monthly or Less Hx Substance Use: No Preferred Language: Armenian Communication Ability: Effective Visual Impairment: No Limitations Hearing Ability: Normal Global Engineering Manager Required: No Beliefs That Will Affect Care: None marital status: / Current Living Situation: Family Current Living Situation Comment: lives with daughter How many Children do You have: 4 Other Information That Helps Us Care for You: No Feels Safe at Home: Yes Safety Concerns: Feels Safe At This Time Childhood Exposure to Second-Hand Smoke: No Diet: regular Diet Comment: low acidity Dental Care, Regularly: No Physical Activity Frequency: Does not Exercise Seatbelt Use: always Sunscreen Use: No Assistive Devices: Walker Review of Systems Review of Systems: All systems reviewed & are unremarkable except as noted in Subjective Physical Exam Physical Exam: Critically ill appearing elderly male on high flow nasal cannula 100% FiO2 fatigued and +resp distress with conversational dyspnea he is awake and alert Skin pale, cool with scatt ecchymoses and swelling to hands and feet Results & Data Vital Signs (Past 12 Hours) Vital Signs Temp Pulse Pulse Resp BP Pulse Ox O2 Del Method 09/30/23 11:10 66 25 H 93 High Flow Nasal Cannula 09/30/23 11:02 126/60 09/30/23 11:02 36.8 C 67 21 90 High Flow Nasal Cannula 09/30/23 11:00 36.8 C 68 20 89 L 09/30/23 10:45 36.9 C 68 22 89 L 09/30/23 10:45 108/61 09/30/23 10:30 107/59 L 09/30/23 10:30 36.9 C 68 27 H 87 L 09/30/23 10:15 36.9 C 63 16 94 09/30/23 10:15 105/60 09/30/23 10:00 106/64 09/30/23 10:00 36.9 C 64 21 93 09/30/23 09:45 98/60 L 09/30/23 09:45 36.9 C 69 25 H 92 09/30/23 09:30 36.9 C 62 16 93 09/30/23 09:30 99/54 L 09/30/23 09:15 36.8 C 66 16 93 09/30/23 09:15 112/64 09/30/23 09:00 36.8 C 65 17 93 09/30/23 09:00 BiPAP 09/30/23 08:46 36.9 C 67 22 91 09/30/23 08:46 123/69 09/30/23 08:45 36.9 C 67 21 91 09/30/23 08:31 36.9 C 68 24 84 L 09/30/23 08:31 120/58 L 09/30/23 08:30 36.9 C 67 28 H 85 L 09/30/23 08:16 36.8 C 65 14 93 09/30/23 08:16 110/66 09/30/23 08:15 36.8 C 66 21 95 09/30/23 08:00 36.8 C 64 16 95 09/30/23 08:00 108/57 L 09/30/23 08:00 60 09/30/23 07:45 36.8 C 66 16 94 09/30/23 07:35 66 25 H 94 09/30/23 07:30 36.8 C 64 14 94 09/30/23 07:30 106/57 L 09/30/23 07:15 36.8 C 66 17 94 09/30/23 07:15 108/57 L 09/30/23 07:00 103/66 09/30/23 07:00 36.8 C 66 22 93 09/30/23 06:45 105/56 L 09/30/23 06:45 36.7 C 65 14 94 09/30/23 06:30 36.8 C 64 15 93 09/30/23 06:30 104/56 L 09/30/23 06:15 36.8 C 64 15 94 09/30/23 06:15 108/56 L 09/30/23 06:00 111/59 L 09/30/23 06:00 36.8 C 65 17 93 09/30/23 05:45 36.8 C 63 14 93 09/30/23 05:45 106/55 L 09/30/23 05:30 36.8 C 64 17 94 09/30/23 05:30 106/55 L 09/30/23 05:15 36.8 C 63 17 94 09/30/23 05:15 107/54 L 09/30/23 05:00 36.8 C 63 17 93 09/30/23 05:00 97/53 L 09/30/23 04:45 36.8 C 64 15 93 09/30/23 04:45 95/50 L 09/30/23 04:32 110/59 L 09/30/23 04:32 36.8 C 64 14 94 09/30/23 04:30 36.8 C 66 17 94 09/30/23 04:00 36.7 C 66 18 95 09/30/23 03:45 63 15 93 09/30/23 03:30 36.8 C 63 15 96 09/30/23 03:30 95/53 L 09/30/23 03:15 104/51 L 09/30/23 03:15 36.7 C 64 15 95 09/30/23 03:00 103/57 L 09/30/23 03:00 36.8 C 65 16 94 09/30/23 02:45 36.7 C 65 14 93 09/30/23 02:45 102/62 09/30/23 02:30 36.7 C 64 15 93 09/30/23 02:30 101/53 L 09/30/23 02:15 36.7 C 64 15 94 09/30/23 02:15 101/58 L 09/30/23 02:00 36.7 C 63 14 94 09/30/23 02:00 98/56 L 09/30/23 01:45 99/53 L 09/30/23 01:45 36.7 C 63 15 95 09/30/23 01:30 36.6 C 64 16 94 09/30/23 01:30 106/54 L 09/30/23 01:17 36.6 C 64 16 92 09/30/23 01:17 85/58 L 09/30/23 01:00 36.5 C 64 16 93 09/30/23 01:00 102/56 L 09/30/23 00:45 36.5 C 65 16 93 09/30/23 00:45 109/55 L 09/30/23 00:30 102/56 L 09/30/23 00:30 36.5 C 64 16 95 O2 Flow Rate FiO2 09/30/23 11:10 40 100 09/30/23 11:02 09/30/23 11:02 1.0 09/30/23 11:00 09/30/23 10:45 09/30/23 10:45 09/30/23 10:30 09/30/23 10:30 09/30/23 10:15 09/30/23 10:15 09/30/23 10:00 09/30/23 10:00 09/30/23 09:45 09/30/23 09:45 09/30/23 09:30 09/30/23 09:30 09/30/23 09:15 09/30/23 09:15 09/30/23 09:00 09/30/23 09:00 50 09/30/23 08:46 09/30/23 08:46 09/30/23 08:45 09/30/23 08:31 09/30/23 08:31 09/30/23 08:30 09/30/23 08:16 09/30/23 08:16 09/30/23 08:15 09/30/23 08:00 09/30/23 08:00 09/30/23 08:00 09/30/23 07:45 09/30/23 07:35 50 09/30/23 07:30 09/30/23 07:30 09/30/23 07:15 09/30/23 07:15 09/30/23 07:00 09/30/23 07:00 09/30/23 06:45 09/30/23 06:45 09/30/23 06:30 09/30/23 06:30 09/30/23 06:15 09/30/23 06:15 09/30/23 06:00 09/30/23 06:00 09/30/23 05:45 09/30/23 05:45 09/30/23 05:30 09/30/23 05:30 09/30/23 05:15 09/30/23 05:15 09/30/23 05:00 09/30/23 05:00 09/30/23 04:45 09/30/23 04:45 09/30/23 04:32 09/30/23 04:32 09/30/23 04:30 09/30/23 04:00 09/30/23 03:45 60 09/30/23 03:30 09/30/23 03:30 09/30/23 03:15 09/30/23 03:15 09/30/23 03:00 09/30/23 03:00 09/30/23 02:45 09/30/23 02:45 09/30/23 02:30 09/30/23 02:30 09/30/23 02:15 09/30/23 02:15 09/30/23 02:00 09/30/23 02:00 09/30/23 01:45 09/30/23 01:45 09/30/23 01:30 09/30/23 01:30 09/30/23 01:17 09/30/23 01:17 09/30/23 01:00 09/30/23 01:00 09/30/23 00:45 09/30/23 00:45 09/30/23 00:30 09/30/23 00:30 Laboratory Results data reviewed, see HPI Diagnostic Findings data reviewed, see HPI PG Care Time/CCT Total # of Minutes Spent Total Time Spent: 105 Total Time Spent with Patient: Total time spent is greater than 50% in coordination of care (as documented) at patient's floor/unit and/or counseling patient: I spent 105 minutes overall addressing this case: 25 min in medical data review/discussion with referring provider(s) and/or preparation for the visit including chart review d/w medical teams and d/w cancer committee 20 min in direct interaction with the patient/exam 30 min in Advance Care Planning/Goals of Care discussions as det melina above in note (must be >16min) 15 min in subsequent review and synthesis of assessment and plan 15 min communicating with other providers regarding the patient's case: Advanced Care Planning 21635 Advanced Care Planning 30 [place] [address] IN/OBS CONSULT LVL 4,60M Patient Type New History Comprehensive Exam Expanded Problem Focused Medical Decision Making High Complexity Diagnoses Dyspnea and respiratory abnormalities R06.00; R06.89 Weakness generalized R53.1 Declining performance status R53.81 Muscular deconditioning R29.898 Advanced care planning/counseling discussion Z71.89 Palliative care by specialist Z51.5 Small cell lung cancer C34.90 Acute hypoxic respiratory failure J96.01 Pleural effusion J90 Chronic obstructive pulmonary disease, unspecified COPD type J44.9 COPD type: unspecified COPD Solitary kidney, acquired Z90.5 Additional Codes Advanced Care Planning - 38329 Advanced Care Planning 30 Min: 24653 Advanced Care Planning 30 Min ([id number])
[2023-09-30 13:29] LABS: iSTAT Allen Test Pass; iSTAT Art Bld Gas pCO2 Correct 47 mmHg (35-46); iSTAT Art Bld Gas pH Corrected 7.297 (7.35-7.45); iSTAT Arterial Blood Gas HCO3 23 meg/L (19-24); iSTAT Arterial Blood Gas pCO2 48 mmHg (35-46); iSTAT Arterial Blood Gas pH 7.29 (7.35-7.45); iSTAT Arterial Blood Gas pO2 56 mmHg (80-95); iSTAT Arterial Blood Gas pO2 C 54; iSTAT Carbon Dioxide 25 mmol/L (24-31); iSTAT FiO2 100 %; iSTAT Hematocrit 32 % (42-52); iSTAT Hemoglobin 10.9 g/dl (14.0-18.0); iSTAT Potassium 3.4 mmol/L (3.3-5.0); iSTAT Site L Radial; iSTAT Sodium 138 mmol/L (135-144)
--- NOTE | 2023-09-30 18:47 | Oncology Consultation ---
Date of Consultation September 30, 2023 Assessment & Plan (1) Small cell lung cancer: I had a lengthy discussion with the family in the presence of Dr. Kearns from our intensive care department. Explained to the patient, about the poor prognosis of this patient and incurable nature of this disease. At this point his disease also untreatable because he is in the ICU and respiratory failure and has sepsis is currently on antibiotics and pressors. Recommended against treatment of cancer with palliative systemic chemotherapy. Counseled, that chemotherapy could worsen his clinical condition. Rest of the counseling was done by Dr. Kearns and Dr. Antonia Woodward from palliative care Plan Medical oncology will continue to follow the patient and make appropriate recommendations. Thank you for this interesting oncological consult History of Present Illness Attending Physician: Gómez Thomas History of Present Illness The patient is a very pleasant 77-year-old man who is well-known to me and has advanced small cell lung cancer. He was previously evaluated in [facility], received 2 cycles of carboplatin etoposide. After second cycle he had ruptured duodenal ulcer and recurrent GI hemorrhage. He was in the hospital. He had a noted decline in his performance status, subsequently decided to [facility] to be with his daughter. He was due to start his next cycle of chemotherapy however became increasingly hypoxic, short of breath. He is currently in the ICU at [facility]. Medical oncology has been consulted to assist in management of this patient with advanced small cell lung cancer, with previous reaction to chemotherapy, poor performance status and respiratory failure. Allergies Allergy/AdvReac Type Severity Reaction Status Date / Time No Known Drug Allergies Allergy Verified 09/29/23 17:14 Home Medications Medication Instructions Recorded Confirmed Type allopurinol 100 mg tablet 100 mg PO DAILY 08/07/23 09/29/23 History bisoprolol fumarate 5 mg tablet 10 mg PO DAILY 08/07/23 09/29/23 History cholecalciferol (vitamin D3) 25 0 mcg PO DAILY 08/07/23 09/29/23 History mcg (1,000 unit) capsule hydralazine 50 mg tablet 50 mg PO TID 08/07/23 09/29/23 History hydrocodone 5 mg-acetaminophen 325 0.5 tab PO DAILY PRN Pain 08/07/23 09/29/23 History mg tablet levalbuterol tartrate 45 See Rx Instructions inhalation 08/07/23 09/29/23 Rx mcg/actuation aerosol inhaler .COMPLEX PRN shortness of breath (Xopenex HFA) or wheezing #15 grams tamsulosin 0.4 mg capsule 0.4 mg PO DAILY 08/07/23 09/29/23 History umeclidinium 62.5 mcg-vilanterol 1 inh inhalation DAILY #60 ea 08/07/23 09/29/23 Rx 25 mcg/actuation powdr for inhalation (Anoro Ellipta) levothyroxine 50 mcg tablet 50 mcg PO DAILY #90 tabs 08/11/23 09/29/23 Rx (Synthroid) hydrochlorothiazide 25 mg tablet 25 mg PO DAILY #90 tabs 08/14/23 09/29/23 Rx pantoprazole 40 mg tablet,delayed 40 mg PO BID #60 tabs 08/28/23 09/29/23 Rx release mecobalamin (vitamin B12) 500 mcg 0 mcg PO DAILY 09/08/23 09/29/23 History chewable tablet amiodarone 200 mg tablet 200 mg PO BID #60 tabs 09/16/23 09/29/23 Rx Patient History Medical History (Updated 09/30/23 @ 13:34 by Anais Woodward DNP) Advanced care planning/counseling discussion Palliative care by specialist Insomnia DJD (degenerative joint disease) A-fib Arthritis H/O renal calculi Surgical History History of appendectomy S/p nephrectomy 1964 S/P lymph node biopsy S/P cataract surgery bilateral Family History Aunt Breast cancer Mother Heart disease Myocardial infarction Father Melanoma Denies family history of Ovarian cancer Prostate cancer Colorectal cancer Social History Smoking Status: Former smoker Tobacco Type: Cigarettes Age Started Using Tobacco: 19; Age Quit Using Tobacco: 61; packs per day: 2; Second Hand Exposure: No; Do You Dip or Chew Tobacco: No; Hx Alcohol Use: Yes Alcohol type: beer Alcohol Intake Frequency: Monthly or Less Hx Substance Use: No Preferred Language: Lithuanian Communication Ability: Effective Visual Impairment: No Limitations Hearing Ability: Normal Medical Office Scheduler Required: No Beliefs That Will Affect Care: Congregation marital status: / Current Living Situation: Family Current Living Situation Comment: lives with daughter How many Children do You have: 4 Other Information That Helps Us Care for You: No Feels Safe at Home: Yes Safety Concerns: Feels Safe At This Time Childhood Exposure to Second-Hand Smoke: No Diet: regular Diet Comment: low acidity Dental Care, Regularly: No Physical Activity Frequency: Does not Exercise Seatbelt Use: always Sunscreen Use: No Assistive Devices: Walker Results & Data Vital Signs (Past 12 Hours) Vital Signs Temp Pulse Pulse Resp BP Pulse Ox O2 Del Method 09/30/23 18:15 36.1 C L 65 18 90 09/30/23 18:00 115/77 09/30/23 18:00 36.2 C L 68 20 88 L 09/30/23 17:57 36.2 C L 69 16 84 L 09/30/23 17:57 112/63 09/30/23 17:45 36.3 C L 69 22 84 L 09/30/23 17:30 36.4 C L 68 27 H 83 L 09/30/23 17:15 36.4 C L 67 20 85 L 09/30/23 17:00 36.4 C L 67 21 94 09/30/23 16:45 36.4 C L 66 20 92 09/30/23 16:30 36.4 C L 65 17 95 09/30/23 16:15 36.3 C L 64 18 95 09/30/23 16:00 119/80 09/30/23 16:00 36.3 C L 64 18 93 09/30/23 16:00 64 09/30/23 15:45 36.3 C L 65 19 94 09/30/23 15:30 36.3 C L 67 20 90 09/30/23 15:25 69 22 88 L 09/30/23 15:15 36.3 C L 70 21 83 L 09/30/23 15:00 115/58 L 09/30/23 15:00 36.4 C L 69 22 85 L 09/30/23 14:45 36.5 C 67 29 H 86 L 09/30/23 14:45 114/55 L 09/30/23 14:30 130/64 09/30/23 14:30 36.4 C L 69 22 86 L 09/30/23 14:17 36.4 C L 69 21 88 L 09/30/23 14:17 123/56 L 09/30/23 14:15 36.5 C 69 21 88 L 09/30/23 14:01 119/71 09/30/23 14:00 36.5 C 68 17 90 09/30/23 13:46 106/75 09/30/23 13:45 36.5 C 68 17 88 L 09/30/23 13:30 36.5 C 69 19 88 L High Flow Nasal Cannula 09/30/23 13:30 118/74 09/30/23 13:15 36.5 C 69 19 89 L 09/30/23 13:00 36.5 C 68 18 90 09/30/23 13:00 123/57 L 09/30/23 12:45 36.6 C 68 18 91 09/30/23 12:45 118/67 09/30/23 12:31 36.6 C 67 20 89 L 09/30/23 12:31 123/68 09/30/23 12:30 36.6 C 68 22 90 09/30/23 12:15 36.6 C 67 15 89 L 09/30/23 12:15 119/67 09/30/23 12:00 110/55 L 09/30/23 12:00 36.7 C 68 19 89 L 09/30/23 11:46 36.7 C 68 17 89 L 09/30/23 11:46 103/48 L 09/30/23 11:45 36.7 C 66 20 89 L 09/30/23 11:30 110/52 L 09/30/23 11:30 36.7 C 68 15 88 L 09/30/23 11:15 36.8 C 69 19 89 L 09/30/23 11:10 66 25 H 93 High Flow Nasal Cannula 09/30/23 11:02 126/60 09/30/23 11:02 36.8 C 67 21 90 High Flow Nasal Cannula 09/30/23 11:00 36.8 C 68 20 89 L 09/30/23 10:45 36.9 C 68 22 89 L 09/30/23 10:45 108/61 09/30/23 10:30 107/59 L 09/30/23 10:30 36.9 C 68 27 H 87 L 09/30/23 10:15 36.9 C 63 16 94 09/30/23 10:15 105/60 09/30/23 10:00 106/64 09/30/23 10:00 36.9 C 64 21 93 09/30/23 09:45 98/60 L 09/30/23 09:45 36.9 C 69 25 H 92 09/30/23 09:30 36.9 C 62 16 93 09/30/23 09:30 99/54 L 09/30/23 09:15 36.8 C 66 16 93 09/30/23 09:15 112/64 09/30/23 09:00 36.8 C 65 17 93 09/30/23 09:00 BiPAP 09/30/23 08:46 36.9 C 67 22 91 09/30/23 08:46 123/69 09/30/23 08:45 36.9 C 67 21 91 09/30/23 08:31 36.9 C 68 24 84 L 09/30/23 08:31 120/58 L 09/30/23 08:30 36.9 C 67 28 H 85 L 09/30/23 08:16 36.8 C 65 14 93 09/30/23 08:16 110/66 09/30/23 08:15 36.8 C 66 21 95 09/30/23 08:00 36.8 C 64 16 95 09/30/23 08:00 108/57 L 09/30/23 08:00 60 09/30/23 07:45 36.8 C 66 16 94 09/30/23 07:35 66 25 H 94 09/30/23 07:30 36.8 C 64 14 94 09/30/23 07:30 106/57 L 09/30/23 07:15 36.8 C 66 17 94 09/30/23 07:15 108/57 L 09/30/23 07:00 103/66 09/30/23 07:00 36.8 C 66 22 93 09/30/23 06:45 105/56 L 09/30/23 06:45 36.7 C 65 14 94 O2 Flow Rate FiO2 09/30/23 18:15 09/30/23 18:00 09/30/23 18:00 09/30/23 17:57 09/30/23 17:57 09/30/23 17:45 09/30/23 17:30 09/30/23 17:15 09/30/23 17:00 09/30/23 16:45 09/30/23 16:30 09/30/23 16:15 09/30/23 16:00 09/30/23 16:00 09/30/23 16:00 09/30/23 15:45 09/30/23 15:30 09/30/23 15:25 100 09/30/23 15:15 09/30/23 15:00 09/30/23 15:00 09/30/23 14:45 09/30/23 14:45 09/30/23 14:30 09/30/23 14:30 09/30/23 14:17 09/30/23 14:17 09/30/23 14:15 09/30/23 14:01 09/30/23 14:00 09/30/23 13:46 09/30/23 13:45 09/30/23 13:30 40 09/30/23 13:30 09/30/23 13:15 09/30/23 13:00 09/30/23 13:00 09/30/23 12:45 09/30/23 12:45 09/30/23 12:31 09/30/23 12:31 09/30/23 12:30 09/30/23 12:15 09/30/23 12:15 09/30/23 12:00 09/30/23 12:00 09/30/23 11:46 09/30/23 11:46 09/30/23 11:45 09/30/23 11:30 09/30/23 11:30 09/30/23 11:15 09/30/23 11:10 40 100 09/30/23 11:02 09/30/23 11:02 1.0 09/30/23 11:00 09/30/23 10:45 09/30/23 10:45 09/30/23 10:30 09/30/23 10:30 09/30/23 10:15 09/30/23 10:15 09/30/23 10:00 09/30/23 10:00 09/30/23 09:45 09/30/23 09:45 09/30/23 09:30 09/30/23 09:30 09/30/23 09:15 09/30/23 09:15 09/30/23 09:00 09/30/23 09:00 50 09/30/23 08:46 09/30/23 08:46 09/30/23 08:45 09/30/23 08:31 09/30/23 08:31 09/30/23 08:30 09/30/23 08:16 09/30/23 08:16 09/30/23 08:15 09/30/23 08:00 09/30/23 08:00 09/30/23 08:00 09/30/23 07:45 09/30/23 07:35 50 09/30/23 07:30 09/30/23 07:30 09/30/23 07:15 09/30/23 07:15 09/30/23 07:00 09/30/23 07:00 09/30/23 06:45 09/30/23 06:45
--- NOTE | 2023-09-30 23:47 | Hospitalist Progress Note ---
Date of Service September 30, 2023 Assessment & Plan (1) Acute hypoxic respiratory failure: Plan: Acute hypoxic respiratory failure, hypotension, metabolic acidosis with anion gap in a patient with a large plueral effusion. BP has been labile.Patient on pressors. On BIPAP, not improving. poor prognosis (2) Small cell lung cancer: Plan: large pleural effusion, likely representing poor prognosis. (3) LINDA (acute kidney injury): Plan: creatinine is elevated, likely prerenal. IVF (4) Metabolic acidosis: Plan: likely from LINDA IVF placred (5) Pleural effusion: Plan: large plueral effusion (6) Hypothyroidism: Plan: continue levothyroxin (7) Atrial fibrillation, chronic: Plan: on amiodarone at home. will contiue (8) Benign essential hypertension: Plan: hold home meds Admission and Anticipated Discharge Date Admission Date: September 29, 2023 Subjective Patient on BIPAP. Review of Systems Review of Systems: All systems reviewed & are unremarkable except as noted in HPI & below Physical Exam Physical Exam: Patient is lying in bed.on BIPAP HEAD - NC/AT. EYES - PERRL with EOMI bilaterally. Sclera anicteric. MOUTH/OROPHARYNX - MMM NECK - supple LUNGS -using accessory muscles to breath,decreased breath sounds on bases. absent on right. CARDIAC - RRR with S1/S2. No murmur, rubs, or gallops are appreciated. ABDOMEN - BS+, NT, ND Results & Data Results & Data Vital Signs (Past 12 Hours) Vital Signs Temp Pulse Resp BP Pulse Ox O2 Del Method O2 Flow Rate 09/30/23 22:00 119/59 L 09/30/23 22:00 36.6 C 64 15 92 09/30/23 21:45 116/59 L 09/30/23 21:45 36.6 C 65 18 93 09/30/23 21:30 124/64 09/30/23 21:30 36.6 C 67 19 92 09/30/23 21:15 117/64 09/30/23 21:15 36.6 C 65 25 H 94 09/30/23 21:00 BiPAP 09/30/23 21:00 116/61 09/30/23 21:00 36.6 C 64 16 95 09/30/23 20:45 105/62 09/30/23 20:45 36.5 C 64 15 94 09/30/23 20:30 111/57 L 09/30/23 20:30 36.5 C 64 16 94 09/30/23 20:15 112/63 09/30/23 20:15 36.5 C 65 17 96 09/30/23 20:00 36.4 C L 63 17 96 09/30/23 20:00 115/55 L 09/30/23 19:45 36.4 C L 65 16 95 09/30/23 19:45 116/75 09/30/23 19:30 111/63 09/30/23 19:30 36.3 C L 63 16 96 09/30/23 19:15 115/58 L 09/30/23 19:15 36.3 C L 63 17 97 09/30/23 19:12 62 20 96 09/30/23 19:00 107/58 L 09/30/23 19:00 36.2 C L 62 19 95 09/30/23 18:15 36.1 C L 65 18 90 09/30/23 18:00 115/77 09/30/23 18:00 36.2 C L 68 20 88 L 09/30/23 17:57 36.2 C L 69 16 84 L 09/30/23 17:57 112/63 09/30/23 17:45 36.3 C L 69 22 84 L 09/30/23 17:30 36.4 C L 68 27 H 83 L 09/30/23 17:15 36.4 C L 67 20 85 L 09/30/23 17:00 36.4 C L 67 21 94 09/30/23 16:45 36.4 C L 66 20 92 09/30/23 16:30 36.4 C L 65 17 95 09/30/23 16:15 36.3 C L 64 18 95 09/30/23 16:00 119/80 09/30/23 16:00 36.3 C L 64 18 93 09/30/23 16:00 64 09/30/23 15:45 36.3 C L 65 19 94 09/30/23 15:30 36.3 C L 67 20 90 09/30/23 15:25 69 22 88 L 09/30/23 15:15 36.3 C L 70 21 83 L 09/30/23 15:00 115/58 L 09/30/23 15:00 36.4 C L 69 22 85 L 09/30/23 14:45 36.5 C 67 29 H 86 L 09/30/23 14:45 114/55 L 09/30/23 14:30 130/64 09/30/23 14:30 36.4 C L 69 22 86 L 09/30/23 14:17 36.4 C L 69 21 88 L 09/30/23 14:17 123/56 L 09/30/23 14:15 36.5 C 69 21 88 L 09/30/23 14:01 119/71 09/30/23 14:00 36.5 C 68 17 90 09/30/23 13:46 106/75 09/30/23 13:45 36.5 C 68 17 88 L 09/30/23 13:30 36.5 C 69 19 88 L High Flow Nasal Cannula 40 09/30/23 13:30 118/74 09/30/23 13:15 36.5 C 69 19 89 L 09/30/23 13:00 36.5 C 68 18 90 09/30/23 13:00 123/57 L 09/30/23 12:45 36.6 C 68 18 91 09/30/23 12:45 118/67 09/30/23 12:31 36.6 C 67 20 89 L 09/30/23 12:31 123/68 09/30/23 12:30 36.6 C 68 22 90 09/30/23 12:15 36.6 C 67 15 89 L 09/30/23 12:15 119/67 09/30/23 12:00 110/55 L 09/30/23 12:00 36.7 C 68 19 89 L FiO2 09/30/23 22:00 09/30/23 22:00 09/30/23 21:45 09/30/23 21:45 09/30/23 21:30 09/30/23 21:30 09/30/23 21:15 09/30/23 21:15 09/30/23 21:00 75 09/30/23 21:00 09/30/23 21:00 09/30/23 20:45 09/30/23 20:45 09/30/23 20:30 09/30/23 20:30 09/30/23 20:15 09/30/23 20:15 09/30/23 20:00 09/30/23 20:00 09/30/23 19:45 09/30/23 19:45 09/30/23 19:30 09/30/23 19:30 09/30/23 19:15 09/30/23 19:15 09/30/23 19:12 100 09/30/23 19:00 09/30/23 19:00 09/30/23 18:15 09/30/23 18:00 09/30/23 18:00 09/30/23 17:57 09/30/23 17:57 09/30/23 17:45 09/30/23 17:30 09/30/23 17:15 09/30/23 17:00 09/30/23 16:45 09/30/23 16:30 09/30/23 16:15 09/30/23 16:00 09/30/23 16:00 09/30/23 16:00 09/30/23 15:45 09/30/23 15:30 09/30/23 15:25 09/30/23 15:15 09/30/23 15:00 09/30/23 15:00 09/30/23 14:45 09/30/23 14:45 09/30/23 14:30 09/30/23 14:30 09/30/23 14:17 09/30/23 14:17 09/30/23 14:15 09/30/23 14:01 09/30/23 14:00 09/30/23 13:46 09/30/23 13:45 09/30/23 13:30 09/30/23 13:30 09/30/23 13:15 09/30/23 13:00 09/30/23 13:00 09/30/23 12:45 09/30/23 12:45 09/30/23 12:31 09/30/23 12:31 09/30/23 12:30 09/30/23 12:15 09/30/23 12:15 09/30/23 12:00 09/30/23 12:00 PG Care Time/CCT Total # of Minutes Spent Total Time Spent with Patient: Total time spent is greater than 50% in coordination of care (as documented) at patient's floor/unit and/or counseling patient: Coding Level of Care Code 44533 SUB INP/OBS CARE 350MIN Diagnoses Acute hypoxic respiratory failure J96.01 Small cell lung cancer C34.90 LINDA (acute kidney injury) N17.9 Metabolic acidosis E87.20 Pleural effusion J90 Hypothyroidism E03.9 Atrial fibrillation, chronic I48.20 Benign essential hypertension I10
[2023-10-01] MEDS: NOREPINEPHRINE/D5W 4 MG/250 ML PLCT IV SCH ×3 (03:58→18:00)
[2023-10-01 05:46] LABS: Hematocrit (blood only) 31.9 % (42.0-52.0); Hemoglobin 9.8 g/dl (14.0-18.0); Mean Corpuscular Hemoglobin 29.3 pg (25.0-34.0); Mean Corpuscular Hgb Conc 30.7 g/dL (32.0-36.0); Mean Corpuscular Volume 95.5 fL (80.0-100.0); Mean Platelet Volume 10.2 fL (9.4-12.4); Nucleated RBC # (auto) 0.02 K/uL (0.00-0.12); Nucleated RBC % (auto) 0.2 %; Platelet Count 221 K/uL (130-400); RDW Standard Deviation 59.2 fL (36.4-46.3); Red Blood Count 3.34 M/uL (4.70-6.10); White Blood Count 10.53 K/ul (4.8-10.8)
[2023-10-01 06:00] LABS: BUN Creatinine Ratio 26.3 (10-20); Calcium 9.1 mg/dl (8.6-10.3); Creatinine Clr Calc Pharmacy 38.9 ml/min; Est GFR (African American) 36.9 ml/min; Est GFR (Non-African American) 31.9 ml/min; Magnesium 2.2 mg/dl (1.7-2.4); Phosphorus 2.8 mg/dl (2.5-4.9); Potassium 3.3 mmol/L (3.5-5.1)
[2023-10-01 06:09] LABS: Basophils # (auto) 0.01 K/uL (0.00-0.20); Basophils % (auto) 0.1 %; Immature Granulocytes # (auto) 0.06 K/uL (0.01-0.20); Immature Granulocytes % (auto) 0.6 %; Lymphocytes # (auto) 0.25 K/uL (1.20-3.40); Lymphocytes % (auto) 2.4 %; Monocytes # (auto) 0.63 K/uL (0.11-0.59); Neutrophils # (auto) 9.58 K/uL (1.40-6.50); Neutrophils % (auto) 90.9 %; Ovalocytes 1+; Polychromasia 1+
[2023-10-01] MEDS ORDERED: LEVOTHYROXINE SODIUM 50 MCG TABLET PO SCH (06:30)
[2023-10-01] MEDS: POTASSIUM CHLORIDE / WTR 20 MEQ/100 ML PLCT IV SCH ×2 (07:34→09:29)
[2023-10-01] MEDS: HEPARIN SOD 5,000 UNIT/0.5 ML VIAL SQ SCH ×2 (07:35→21:03)
[2023-10-01] MEDS: CEFEPIME 2,000 MG in SYRINGE 0 ML IV SCH (07:37)
--- NOTE | 2023-10-01 07:42 | Critical Care Progress Note ---
Date of Service October 01, 2023 Assessment & Plan (1) Acute hypoxic respiratory failure: (2) Small cell lung cancer: (3) LINDA (acute kidney injury): (4) Pleural effusion: (5) A-fib: (6) Hypothyroidism: (7) Chronic obstructive pulmonary disease: (8) Solitary kidney, acquired: (9) Chronic gout: Plan Mr. Ren is a 77 y/o male with PMHx of Small Cell Lung Cancer, COPD, Solitary Kidney, A-fib, HTN, and gout who was admitted to ICU due to acute hypoxic respiratory failure with noted pleural effusions, and hypotension. NEURO: - Neurologically intact CARDIOVASCULAR: Hypotension -- Hypotension persistent but improved compared to yesterday. MAPs have remained > 65 mmHg. Last night Vasopressin was weaned off and Levophed was decreased to 0.03 mcg/kg/min. Titrating as needed to maintain MAP > 65 mmHg. Low blood pressures potentially due to fluid third spacing/ low oncotic pressure given noted improvement after albumin administration. TTE showing some diastolic dysfunction, but no wall motion abnormalities or pericardial fluid/ tamponade, and EF of 65-70%. Continue monitoring and titrating vasopressors as needed. A-Fib -- Telemetry showing patient has stayed in NSR. Continue to hold home Amiodarone for now. HTN -- Continue to hold home antihypertensives given hypotensive state. Monitor on Telemetry. PULMONARY: Acute Hypoxic Respiratory Failure -- Likely due to poor ventilation consequent of right-sided pleural effusion, but history of COPD and small cell lung cancer may also play a role. Yesterday ABG showing persistent respiratory acidosis with partial metabolic compensation. Overnight, patient was desaturating to low 80s with the high-flow nasal cannula, and was switched back to BiPAP (current settings 12/8 with FiO2 at 70%), currently saturating 93-95% with this. Pleurex in place. CXR today showing persistent right sided pleural effusion/pulmonary edema with similar but less severe findings on the left lung. Will drain 1L from pleurex today and switch back to high-flow nasal cannula. Will also give Lasix 40mg IV x1 to see if diuresis also helps improve breathing. Small Cell Lung Cancer -- Heme/Onc determine patient is not a candidate for systemic chemotherapy given his current clinical state since it's very likely he will not be able to tolerate it, and may worsen him clinically instead. Discussed this with the patient and his daughters yesterday and recommended to begin discussions regarding code status and palliative care. Patient to continue these discussions with his family. Palliative care also conversed with patient and his family (please refer to their note). COPD -- Continue Anoro and Albuterol prn HEMATOLOGY: Today's labs showing decrease in all cell lines (Hgb, Hct, WBC, and Plt). Suspect this is dilutional effect given increased hydration to manage suspected pre-renal LINDA. Will continue to follow am labs. DVT ppx with Heparin. ID: No recorded fevers. Leukocytosis improved today (12.5 --> 10.5) U/A showing bacteriuria. Urine culture preliminary result showing Proteus and Gram positive cocci. Proteus sensitive to Ceftriaxone. Will change abx from Cefepime to Ceftriaxone. May consider changing abx choice when Gram positive cocci and its sensitivities is identified. GI: History of GI bleed. Not recurred. GI ppx with Protonix PO RENAL: Patient with history of solitary kidney. Creatinine elevated to 2.5 on admission (patient baseline ~ 1.6), which may be related to acute on chronic renal injury consequent of low blood pressures (re-renal?). Today Creatinine improved (2.34 --> 1.98) and urine output also improved (0.54 mL/kg/hr). Continue gentle IVF and trending PRP. Hypokalemia noted (3.3). - Will order K+ replacement. ENDOCRINOLOGY: Continue home Levothyroxine LINES/DRAINS/ACCESS: Petty catheter, Pleurex, PIVs x2, Central Line CODE STATUS: FULL CODE Admission and Anticipated Discharge Date Admission Date: September 29, 2023 Supervising Physician Co-Signing Physician Notes Patient seen and examined. EMR reviewed. Discussed on multidisciplinary rounds and with family practice resident. Unfortunately the patient is clinically stagnant. His lung cancer cannot be treated and will continue to progress. This will ultimately take his life likely during this hospitalization. The patient and family at this point in time have been unwilling to consider this option despite current clinical data. Will continue efforts to try and drain his Pleurx catheter to see if it offers him any benefit but I am not optimistic given the endobronchial obstruction. Endobronchial therapy is not appropriate for this patient as it would require intubation mechanical ventilation and would be unlikely that he would come off of the ventilator. In addition the obstruction likely is extrinsic compression due to the tumor and that he is not a candidate for chemo or radiation therapy. Stressed to the patient and will reinforce with the family that noninvasive positive pressure will inhalation and BiPAP or bridge therapies. They typically are used in conditions where were trying to either temporize the patient to allow them to improve or to palliate symptoms. In this case, again I do not see an easily reversible condition and I believe we are actually prolonging the patient's dying process. Will continue to attempt to wean pressors and treat with antibiotics to improve his hemodynamics but unfortunately this will not improve his respiratory status. Intubation and mechanical ventilation are of no benefit in this patient and I advised the patient that if he were intubated he would not come off of the ventilator. This would also not allow him to participate in any family discussions were to visit with his family and would put them in the precision of proxy decision makers for him. I strongly recommended readdressing the patient's CODE STATUS as again I think intubation mechanical ventilation offer him no benefit for survival. I feel the same regarding ACLS interventions including CPR or defibrillation. Despite recommendations, the patient continues to ask for full supportive care to extend his life as long as possible. Will update family once they become available. The patient is critically ill at this point in time with multiorgan system dysfunction failure. A total of 45 minutes in critical care time was spent in evaluation management and stabilization of this patient including end-of-life discussions Subjective Mr. Ren is a 77 y/o male with PMHx of Small Cell Lung Cancer (dx on 05/2023) on chemotherapy with recent associated GI bleed due to a gastric ulcer, COPD, A- fib, HTN, Solitary kidney, and Gout that was admitted after experiencing progressive weakness and SOB. He was found to have right-sided pleural effusion. He was admitted due to hypoxic respiratory failure and management of hypotension. Today he was evaluated at bedside and was found to be AAOx3, afebrile, responsive and able to answer questions, and in no acute distress. Patient refers no significant change in his status (still SOB), and has not noticed significant improvement despite the change from high-flow nasal cannula to BiPAP last night. Denies chest pain, fevers, lightheadedness. Review of Systems Review of Systems: All systems reviewed & are unremarkable except as noted in HPI & below Physical Exam Physical Exam: General: awake, alert, oriented in all spheres, afebrile, cooperative, able to answer questions, no acute distress Cardio: RRR, no r/m/g Respiratory: on BiPAP, course crackles heard bilaterally but more marked in right lung field, No respiratory distress GI: obese habitus, non-tender, positive bowel sounds, no ascites, no masses on palpation : positive Petty Extremities: bilateral +4 edema in lower extremities extending from patients feet to just below his knees slightly improved from yesterday's exam, no discoloration or tenderness in calf bilaterally; Mild swelling in bilateral upper extremities Integumentary: no rashes Results & Data Results & Data Vital Signs (Past 12 Hours) Vital Signs Temp Pulse Resp BP Pulse Ox O2 Del Method FiO2 10/01/23 05:15 95/60 L 10/01/23 05:15 36.5 C 61 16 95 10/01/23 05:00 36.5 C 63 15 94 10/01/23 05:00 106/56 L 10/01/23 04:45 96/55 L 10/01/23 04:45 36.6 C 62 20 95 10/01/23 04:30 96/52 L 10/01/23 04:30 36.5 C 61 18 93 10/01/23 04:15 36.6 C 62 21 91 10/01/23 04:15 98/51 L 10/01/23 04:00 109/53 L 10/01/23 04:00 36.6 C 62 21 94 10/01/23 03:45 107/57 L 10/01/23 03:45 36.6 C 62 21 92 10/01/23 03:45 64 24 94 65 10/01/23 03:30 36.6 C 62 19 92 10/01/23 03:15 104/62 10/01/23 03:15 36.6 C 61 15 92 10/01/23 03:00 112/61 10/01/23 03:00 36.6 C 61 18 93 10/01/23 02:45 108/57 L 10/01/23 02:45 36.6 C 61 20 93 10/01/23 02:30 103/55 L 10/01/23 02:30 36.6 C 61 16 92 10/01/23 02:15 109/57 L 10/01/23 02:15 36.7 C 62 19 92 10/01/23 02:00 36.7 C 61 22 92 10/01/23 02:00 112/59 L 10/01/23 01:45 36.7 C 64 20 92 10/01/23 01:45 119/61 10/01/23 01:30 36.7 C 64 19 92 10/01/23 01:30 128/66 10/01/23 01:15 123/67 10/01/23 01:15 36.7 C 63 16 92 10/01/23 01:00 36.7 C 62 15 92 10/01/23 01:00 119/61 10/01/23 00:45 115/61 10/01/23 00:45 36.7 C 63 15 92 10/01/23 00:30 36.7 C 63 20 91 10/01/23 00:30 117/65 10/01/23 00:15 114/56 L 10/01/23 00:15 36.7 C 63 16 92 10/01/23 00:00 106/58 L 10/01/23 00:00 36.7 C 62 15 92 10/01/23 00:00 62 09/30/23 23:51 65 25 H 92 65 09/30/23 23:45 36.7 C 63 19 92 09/30/23 23:45 117/59 L 09/30/23 23:30 36.7 C 63 20 93 09/30/23 23:15 36.7 C 64 20 93 09/30/23 23:15 127/64 09/30/23 23:00 114/57 L 09/30/23 23:00 36.7 C 63 16 93 09/30/23 22:00 119/59 L 09/30/23 22:00 36.6 C 64 15 92 09/30/23 21:45 116/59 L 09/30/23 21:45 36.6 C 65 18 93 09/30/23 21:30 124/64 09/30/23 21:30 36.6 C 67 19 92 09/30/23 21:15 117/64 09/30/23 21:15 36.6 C 65 25 H 94 09/30/23 21:00 BiPAP 75 09/30/23 21:00 116/61 09/30/23 21:00 36.6 C 64 16 95 09/30/23 20:45 105/62 09/30/23 20:45 36.5 C 64 15 94 09/30/23 20:30 111/57 L 09/30/23 20:30 36.5 C 64 16 94 09/30/23 20:15 112/63 09/30/23 20:15 36.5 C 65 17 96 09/30/23 20:00 36.4 C L 63 17 96 09/30/23 20:00 115/55 L 09/30/23 19:45 36.4 C L 65 16 95 09/30/23 19:45 116/75 Critical Care Results & Data Vital Signs (Past 12 Hours) Vital Signs Temp Pulse Pulse Resp BP Pulse Ox O2 Del Method 10/01/23 08:30 66 17 89 L High Flow Nasal Cannula 10/01/23 05:15 95/60 L 10/01/23 05:15 36.5 C 61 16 95 10/01/23 05:00 36.5 C 63 15 94 10/01/23 05:00 106/56 L 10/01/23 04:45 96/55 L 10/01/23 04:45 36.6 C 62 20 95 10/01/23 04:30 96/52 L 10/01/23 04:30 36.5 C 61 18 93 10/01/23 04:15 36.6 C 62 21 91 10/01/23 04:15 98/51 L 10/01/23 04:00 109/53 L 10/01/23 04:00 36.6 C 62 21 94 10/01/23 03:45 107/57 L 10/01/23 03:45 36.6 C 62 21 92 10/01/23 03:45 64 24 94 10/01/23 03:30 36.6 C 62 19 92 10/01/23 03:15 104/62 10/01/23 03:15 36.6 C 61 15 92 10/01/23 03:00 112/61 10/01/23 03:00 36.6 C 61 18 93 10/01/23 02:45 108/57 L 10/01/23 02:45 36.6 C 61 20 93 10/01/23 02:30 103/55 L 10/01/23 02:30 36.6 C 61 16 92 10/01/23 02:15 109/57 L 10/01/23 02:15 36.7 C 62 19 92 10/01/23 02:00 36.7 C 61 22 92 10/01/23 02:00 112/59 L 10/01/23 01:45 36.7 C 64 20 92 10/01/23 01:45 119/61 10/01/23 01:30 36.7 C 64 19 92 10/01/23 01:30 128/66 10/01/23 01:15 123/67 10/01/23 01:15 36.7 C 63 16 92 10/01/23 01:00 36.7 C 62 15 92 10/01/23 01:00 119/61 10/01/23 00:45 115/61 10/01/23 00:45 36.7 C 63 15 92 10/01/23 00:30 36.7 C 63 20 91 10/01/23 00:30 117/65 10/01/23 00:15 114/56 L 10/01/23 00:15 36.7 C 63 16 92 10/01/23 00:00 106/58 L 10/01/23 00:00 36.7 C 62 15 92 10/01/23 00:00 62 09/30/23 23:51 65 25 H 92 09/30/23 23:45 36.7 C 63 19 92 09/30/23 23:45 117/59 L 09/30/23 23:30 36.7 C 63 20 93 09/30/23 23:15 36.7 C 64 20 93 09/30/23 23:15 127/64 09/30/23 23:00 114/57 L 09/30/23 23:00 36.7 C 63 16 93 O2 Flow Rate FiO2 10/01/23 08:30 60 100 10/01/23 05:15 10/01/23 05:15 10/01/23 05:00 10/01/23 05:00 10/01/23 04:45 10/01/23 04:45 10/01/23 04:30 10/01/23 04:30 10/01/23 04:15 10/01/23 04:15 10/01/23 04:00 10/01/23 04:00 10/01/23 03:45 10/01/23 03:45 10/01/23 03:45 65 10/01/23 03:30 10/01/23 03:15 10/01/23 03:15 10/01/23 03:00 10/01/23 03:00 10/01/23 02:45 10/01/23 02:45 10/01/23 02:30 10/01/23 02:30 10/01/23 02:15 10/01/23 02:10/01/23 02:00 10/01/23 02:00 10/01/23 01:45 10/01/23 01:45 10/01/23 01:30 10/01/23 01:30 10/01/23 01:15 10/01/23 01:15 10/01/23 01:00 10/01/23 01:00 10/01/23 00:45 10/01/23 00:45 10/01/23 00:30 10/01/23 00:30 10/01/23 00:15 10/01/23 00:15 10/01/23 00:00 10/01/23 00:00 10/01/23 00:00 09/30/23 23:51 65 09/30/23 23:45 09/30/23 23:45 09/30/23 23:30 09/30/23 23:15 09/30/23 23:15 09/30/23 23:00 09/30/23 23:00 Lab & Micro Results (Past 24 Hours) RBC 3.34 M/uL (4.70-6.10) L 10/01/23 WBC 10.53 K/ul (4.8-10.8) 10/01/23 Hgb 9.8 g/dl (14.0-18.0) L 10/01/23 Hct 31.9 % (42.0-52.0) L 10/01/23 MCV 95.5 fL (80.0-100.0) 10/01/23 MCH 29.3 pg (25.0-34.0) 10/01/23 MCHC 30.7 g/dL (32.0-36.0) L 10/01/23 RDW Standard Deviation 59.2 fL (36.4-46.3) H 10/01/23 RDW Coefficient of Variation 17.0 % (11.5-14.5) H 10/01/23 Plt Count 221 K/uL (130-400) 10/01/23 MPV 10.2 fL (9.4-12.4) 10/01/23 Nucleated Red Blood Cells % (auto) 0.2 % 10/01 Nucleated RBC Absolute Count (auto) 0.02 K/uL (0.00-0.12) 0 10/01/23 Neutrophils (%) (Auto) 90.9 % 10/01/23 Lymphocytes (%) (Auto) 2.4 % 10/01/23 Monocytes # (Auto) 0.63 K/uL (0.11-0.59) H 10/01/23 Eosinophils # (Auto) 0.00 K/uL (0.00-0.50) 10/01/23 Immature Granulocyte % (Auto) 0.6 % 10/01/23 Neutrophils # (Auto) 9.58 K/uL (1.40-6.50) H 10/01/23 Lymphocytes # (Auto) 0.25 K/uL (1.20-3.40) L 10/01/23 Monocytes # (Auto) 0.63 K/uL (0.11-0.59) H 10/01/23 Eosinophils # (Auto) 0.00 K/uL (0.00-0.50) 10/01/23 Basophils # (Auto) 0.01 K/uL (0.00-0.20) 10/01/23 Immature Granulocyte # (Auto) 0.06 K/uL (0.01-0.20) 4 Polychromasia 1+ 10/01/23 Ovalocytes 1+ 10/01/23 Na 140 mmol/L (136-145) 10/01/23 K 3.3 mmol/L (3.5-5.1) L 10/01/23 Cl 104 mmol/L (98-107) 10/01/23 CO2 30 mmol/L (21-32) 10/01/23 Anion Gap 6 (3-11) 10/01/23 BUN 52 mg/dl (6-23) H 10/01/23 Creatinine 1.98 mg/dl (0.6-1.4) H 10/01/23 Estimated GFR ( Amer) 36.9 ml/min 10/01/23 Estimated GFR (Non-Af Amer) 31.9 ml/min 10/01/23 BUN/Creatinine Ratio 26.3 (10-20) H 10/01/23 Glu 129 mg/dl (70-99(Fasting)) H 10/01/23 Ca 9.1 mg/dl (8.6-10.3) 10/01/23 Phosphorus Level 2.8 mg/dl (2.5-4.9) 10/01/23 Mg 2.2 mg/dl (1.7-2.4) 10/01/23 05:20 Calcium Level 9.1 mg/dl (8.6-10.3) 10/01/23 05:20 Qamar Test Pass 09/30/23 13:18 Microbiology 09/29/23 Unknown Acid Fast Bacilli Smear - Final Pleural Fluid,Right 09/29/23 07:38 Aerobic Blood Culture - Preliminary Blood No growth in Aerobic bottle after 48 hours. Anaerobic Blood Culture - Preliminary No growth in Anaerobic bottle after 48 hours. 09/29/23 06:55 Aerobic Blood Culture - Preliminary Blood No growth in Aerobic bottle after 48 hours. Anaerobic Blood Culture - Preliminary No growth in Anaerobic bottle after 48 hours. 09/29/23 09:10 Urine Culture - Preliminary Urine,Straight Cath Proteus mirabilis Gram positive cocci 09/29/23 Unknown Gram Stain - Final Pleural Fluid,Right Aerobic and Anaerobic Culture - Preliminary No growth to date. Diagnostic Findings (Past 24 Hours) Chest X-Ray 10/01/23 07:00 SINGLE VIEW CHEST CLINICAL HISTORY: Respiratory failure. FINDINGS: An AP, portable, upright chest radiograph is compared to study dated 09/30/2023 and correlated with chest CT dated 09/29/2023. The examination is degraded by portable technique and apical lordotic positioning. A right internal jugular central venous catheter is unchanged in position. The cardiomediastinal silhouette is unremarkable noting atherosclerotic calcification of the thoracic aorta. There is opacification right hemithorax is not appreciably changed. No pneumothorax is identified. Multifocal airspace opacities or the left lung are unchanged modestly increased from previous. A small pleural effusion is again noted. The skeletal structures are osteopenic. The bony thorax is grossly intact. IMPRESSION: 1. Again seen is near complete opacification of the right hemithorax, which is similar to previous. This likely represents a combination of pleural effusion and pulmonary edema. 3. Unchanged to modest increase in airspace opacities throughout the left lung. This also likely represents pulmonary edema. Correlate clinically for evidence of a superimposed pneumonia. 4. A small left pleural effusion is again noted. ACT 112: Negative or not required by law. Electronically signed by: Tripp Castillo M.D. 10/01/2023 7:45 AM I & O Totals 24 Hours 09/30/23 10/01/23 10/02/23 06:59 06:59 06:59 Intake Total 4488.690 / 4488.690 1804.433 / 1804.433 95.833 / 95.833 Output Total 4285 / 4285 1416 / 1416 Balance 203.690 / 203.690 388.433 / 388.433 95.833 / 95.833 Cumulative 09/29/23 06:28 thru 10/01/23 09:29 Intake Total 6388.956 Output Total 5701 Balance 687.956 RT Ventilator Mngmt (Last Documented) Ventilator Ordered Settings Respiratory Rate 17 10/01/23 08:30 Fraction of Inspired Oxygen 100 10/01/23 08:30 Ventilator - PT Measurements Respiratory Rate 17 Coding Level of Care Code 52841 CRITICAL CARE 1ST 30-74M Diagnoses Acute hypoxic respiratory failure J96.01 Small cell lung cancer C34.90 LINDA (acute kidney injury) N17.9 Pleural effusion J90 A-fib I48.91 Hypothyroidism E03.9 Chronic obstructive pulmonary disease, unspecified COPD type J44.9 COPD type: unspecified COPD Solitary kidney, acquired Z90.5 Chronic gout without tophus, unspecified cause, unspecified site [id number] Gout etiology: unspecified cause Gout site: unspecified site Presence of tophus: without tophus (7) Chronic obstructive pulmonary disease COPD type: unspecified COPD Qualified Code(s): J44.9 - Chronic obstructive pulmonary disease, unspecified (9) Chronic gout Gout etiology: unspecified cause Gout site: unspecified site Presence of tophus: without tophus Qualified Code(s): M1A.9XX0 - Chronic gout, unspecified, without tophus (tophi)
--- NOTE | 2023-10-01 07:47 | XRay Report ---
SINGLE VIEW CHEST CLINICAL HISTORY: Respiratory failure. FINDINGS: An AP, portable, upright chest radiograph is compared to study dated 09/30/2023 and correlat ed with chest CT dated 09/29/2023. The examination is degraded by portable technique and apical lordot ic positioning. A right internal jugular central venous catheter is unchanged in position. The cardio mediastinal silhouette is unremarkable noting atherosclerotic calcification of the thoracic aorta. Th ere is opacification right hemithorax is not appreciably changed. No pneumothorax is identified. Mult ifocal airspace opacities or the left lung are unchanged modestly increased from previous. A small pl eural effusion is again noted. The skeletal structures are osteopenic. The bony thorax is grossly int act. IMPRESSION: 1. Again seen is near complete opacification of the right hemithorax, which is similar to previous. T his likely represents a combination of pleural effusion and pulmonary edema. 3. Unchanged to modest increase in airspace opacities throughout the left lung. This also likely repr esents pulmonary edema. Correlate clinically for evidence of a superimposed pneumonia. 4. A small left pleural effusion is again noted. ACT 112: Negative or not required by law. Electronically signed by: Tripp Castillo M.D. 10/01/2023 7:45 AM
[2023-10-01] MEDS: INSULIN ASPART PER UNIT CHARGE SC SCH ×4 (08:05→20:58)
[2023-10-01] MEDS: ICU Protocol for HYPERglycemia SCH (08:06)
[2023-10-01] MEDS ORDERED: FUROSEMIDE 40 MG/4 ML VIAL IV ONE (08:18)
[2023-10-01] MEDS ORDERED: COLLAGENASE OINT 30 GM TUBE EXT SCH (09:00)
[2023-10-01] MEDS: UMECLIDINIUM/VILANTEROL 62.5/25MCG 7 PUFFS/INHALER INH SCH (09:30)
[2023-10-01] MEDS: PANTOprazole 40 MG in SYRINGE 0 ML IV SCH (11:31)
[2023-10-01] MEDS ORDERED: MoRPHine SULFATE 10 MG/0.5 ML UDP PO PRN (12:45)
[2023-10-01] MEDS ORDERED: LORazepam 0.5 MG TAB SL PRN (12:45)
[2023-10-01] MEDS ORDERED: LORazepam 1 MG in SYRINGE 0.25 ML IV PRN (14:11)
[2023-10-01] MEDS ORDERED: HYDROmorphone INJ 0.5 MG/0.5 ML SYR IV PRN ×2 (14:11→14:18)
[2023-10-01] MEDS ORDERED: GLYCOPYRROLATE 0.2 MG/ML VIAL IV PRN (14:11)
[2023-10-01] MEDS ORDERED: HYDROmorphone INJ 1 MG/ML SYRINGE IV PRN (14:20)
--- NOTE | 2023-10-01 14:54 | Palliative Care Progress Note ---
Date of Service October 01, 2023 Assessment & Plan (1) Dyspnea and respiratory abnormalities: Plan: terminal lung cancer and resp failure with overlying COPD/emphysema and rapidly declining PS see ACP below, pt moving to comfort care METEOROLOGIST IN CHARGE meds ordered for sx mgt (2) Weakness generalized: Plan: terminal lung cancer and resp failure with overlying COPD/emphysema and rapidly declining PS (3) Advanced care planning/counseling discussion: Plan: Face to face meeting x 30min with pt daughters x 3 and grand daughter x1: Maria Luisa, Unique (who recently moved in with Maria Luisa, they live in [place]) and Elda; grand daughter Chantelle is from [place], she is a new nurse who is working at [employer]. Maria Luisa is her Mom. Later in pt room, we were joined by pt, his son Lonnie and a grandson. First meeting held in family conference room with dtrs x3 and grand daughter x1 for 30min face to face. Reviewed all of the information from meeting yesterday per Maria Luisa's request and further discussed the clinical concerns of multi system failure due to the rapid progression of his cancer: lung, heart, renal. We discussed he is in an EOL process. This is not going to be curable, reversible or fixable. They shared that pt worked for [employer] for 36 years. His work was often top-secret and required security agreements, he traveled [place] the [place]. He was very ambitious and enjoyed being busy, liked problem solving and never felt there was not an problem he would not be able to fix. This mindset makes it hard for him to come to terms with his mortality. They all agree they want him to be comfortable. They agree they do not want him to suffer. They state he has had trouble accepting he does not have long but has been processing the information - for example, yesterday he spoke about wanting to live long enough to see grandkids achieve milestones but today said he just wants to live long enough to Friday to watch the [employer] match. We returned to pt room and met with pt, dtrs, grand dtr, son Lonnie and a grandson for another 20min face to face. Patient was able to tell me some accurate details about meeting yesterday but did begin to get some confusion about ten minutes into our conversation. He had some trouble following a lot of the detai l. Sometimes it seemed he may also be having trouble hearing the discussion but when questions were repeated louder, he still seemed to have trouble processing the information. We discussed that his cancer is rapidly progressing. I told him we are worried he does not have much time. He agreed with me. I told him it was time to move to a more comfort focused plan of care, as there was more we could do to relief his symptoms burden even if we cannot cure or fix the underlying problem. He agreed with that option and said "that's what we'll do, it makes the most sense." He was more anxious about leaving the ICU feeling that he won't be "monitored" - I advised him we do not need monitors to determine if he is comfortable and we have meds available to provide relief on an as needed basis. I told him we still need to wean down the pressors and it is going to take some time to find a private room in hospital so for now he would remain in ICU until pressors are off and a private room is ready. I reviewed the focus of comfort care with symptom mgt, de escalating non essential and non comfort interventions, no more labs etc. He was in agreement. I encouraged him to let us know if there are things he would like to eat/drink, our focus is on assuring he has comfort/pleasure from his diet at this point and no restrictions are needed. Pt and family in agreement for comfort care They are looking forward to a more private room with liberalized visits. Dtrs would like to take turns staying overnight with pt, which I advised would be ok. They have notified additional family members and most are making their way here to visit. For now, move to comfort de escalate pressors DO NOT ESCALATE oxygen - use opioids as ordered for dyspnea mgt He will likely this admission Reviewed with family his resp muscles and WOB will weaken over time as this disease progresses, he will become more lethargic and sleepy/eventually comatose. We will de escalate HFNC at that time since it will not be adding to comfort or relief of symptoms. They are all in agreement and verbalized understanding. All questions were answered to their apparent satisfaction. CCM and nursing updated. (4) Muscular deconditioning: (5) Declining performance status: Plan: terminal lung cancer and resp failure with overlying COPD/emphysema and rapidly declining PS (6) Palliative care by specialist: (7) Acute hypoxic respiratory failure: (8) Small cell lung cancer: Plan Move to comfort and please de escalate pressors. DO NOT ESCALATE oxygen - use opioids as ordered for dyspnea mgt He will likely this admission Reviewed with family his resp muscles and WOB will weaken over time as this disease progresses, he will become more lethargic and sleepy/eventually comatose. We will de escalate HFNC at that time since it will not be adding to comfort or relief of symptoms. They are all in agreement and verbalized understanding. All questions were answered to their apparent sa Thank you for allowing us to participate in the ongoing care of this patient. Please don't hesitate to call or page with any additional concerns. Dr. Anais Woodward DNP Director, Palliative Care Admission and Anticipated Discharge Date Admission Date: September 29, 2023 Subjective Worsening resp failure now HFNC 100% + face mask full care, bed bound when turned to his side for personal care, pt desats into the 50s with no exertion pressure ulcer possibly evolving on sacrum* this seems to be new and rapid onset still on 2 pressor support weakening/more fatigue family at bedside Review of Systems Review of Systems: All systems reviewed & are unremarkable except as noted in Subjective Physical Exam Physical Exam: Critically ill appearing elderly male on high flow nasal cannula 100% FiO2 fatigued and +resp distress with conversational dyspnea, speaks in 3-4 word sentences he is awake and alert +use of accessory muscles Lungs diminished left mid to base, right upper mid to base nearly absent neck without stridor HFNC in place + face mask abd distended softly, no tenderness, BS+ +generalized weakness BLE edema, +2 pitting, mild mottling changes BUE mild mottling changes, nailbeds dusky Skin pale, cool with scatt ecchymoses and swelling to hands and feet pressure dressing on sacrum, he is not able to reposition himself without max assist Results & Data Vital Signs (Past 12 Hours) Vital Signs Temp Pulse Pulse Resp BP Pulse Ox O2 Del Method 10/01/23 13:30 36.0 C L 66 19 84 L 10/01/23 13:15 98/56 L 10/01/23 13:15 36.0 C L 67 19 88 L 01/31/24 13:01 36.1 C L 67 18 83 L 10/01/23 13:01 104/53 L 10/01/23 13:00 36.1 C L 20 83 L 10/01/23 12:45 102/57 L 10/01/23 12:45 36.1 C L 68 20 86 L 10/01/23 12:30 36.1 C L 65 20 86 L 10/01/23 12:30 107/61 10/01/23 12:15 109/58 L 10/01/23 12:15 36.1 C L 68 20 85 L 10/01/23 12:00 107/53 L 10/01/23 12:00 36.1 C L 63 24 88 L 10/01/23 11:45 104/56 L 10/01/23 11:45 36.1 C L 65 19 87 L 10/01/23 11:30 107/59 L 10/01/23 11:30 36.1 C L 67 20 89 L 10/01/23 11:15 36.2 C L 66 21 86 L 10/01/23 11:12 66 20 86 L High Flow Nasal Cannula 10/01/23 11:12 100 H 20 8 L High Flow Nasal Cannula 10/01/23 11:00 93/72 L 10/01/23 11:00 36.2 C L 80 21 87 L 10/01/23 10:45 107/55 L 10/01/23 10:45 36.3 C L 65 20 91 10/01/23 10:30 110/64 10/01/23 10:30 36.3 C L 65 23 90 10/01/23 10:15 118/55 L 10/01/23 10:15 36.3 C L 66 20 88 L 10/01/23 10:00 105/58 L 10/01/23 10:00 36.3 C L 66 27 H 87 L 10/01/23 09:45 113/58 L 10/01/23 09:45 36.3 C L 68 22 91 10/01/23 09:30 36.4 C L 65 22 90 10/01/23 09:30 113/58 L 10/01/23 09:15 106/58 L 10/01/23 09:15 36.4 C L 66 19 89 L 10/01/23 09:01 36.5 C 69 24 88 L 10/01/23 09:00 36.5 C 69 21 88 L 10/01/23 08:45 110/58 L 10/01/23 08:45 36.5 C 69 23 87 L 10/01/23 08:30 107/57 L 10/01/23 08:30 36.6 C 66 24 86 L 10/01/23 08:30 66 17 89 L High Flow Nasal Cannula 10/01/23 08:16 103/62 10/01/23 08:16 36.6 C 66 21 83 L 10/01/23 08:15 36.6 C 66 23 82 L 10/01/23 08:00 102/54 L 10/01/23 08:00 36.6 C 64 21 90 10/01/23 08:00 65 10/01/23 07:45 122/65 10/01/23 07:45 36.6 C 64 23 90 10/01/23 07:30 36.6 C 63 15 94 10/01/23 07:30 High Flow Nasal Cannula, Non-rebreather 10/01/23 05:15 95/60 L 10/01/23 05:15 36.5 C 61 16 95 10/01/23 05:00 36.5 C 63 15 94 10/01/23 05:00 106/56 L 10/01/23 04:45 96/55 L 10/01/23 04:45 36.6 C 62 20 95 10/01/23 04:30 96/52 L 10/01/23 04:30 36.5 C 61 18 93 10/01/23 04:15 36.6 C 62 21 91 10/01/23 04:15 98/51 L 10/01/23 04:00 109/53 L 10/01/23 04:00 36.6 C 62 21 94 10/01/23 03:45 107/57 L 10/01/23 03:45 36.6 C 62 21 92 10/01/23 03:45 64 24 94 10/01/23 03:30 36.6 C 62 19 92 10/01/23 03:15 104/62 10/01/23 03:15 36.6 C 61 15 92 10/01/23 03:00 112/61 10/01/23 03:00 36.6 C 61 18 93 10/01/23 02:45 108/57 L 10/01/23 02:45 36.6 C 61 20 93 O2 Flow Rate FiO2 10/01/23 13:30 10/01/23 13:15 10/01/23 13:15 10/01/23 13:01 10/01/23 13:01 10/01/23 13:00 10/01/23 12:45 10/01/23 12:45 10/01/23 12:30 10/01/23 12:30 10/01/23 12:15 10/01/23 12:15 10/01/23 12:00 10/01/23 12:00 10/01/23 11:45 10/01/23 11:45 10/01/23 11:30 10/01/23 11:30 10/01/23 11:15 10/01/23 11:12 60 100 10/01/23 11:12 60 100 10/01/23 11:00 10/01/23 11:00 10/01/23 10:45 10/01/23 10:45 10/01/23 10:30 10/01/23 10:30 10/01/23 10:15 10/01/23 10:15 10/01/23 10:00 10/01/23 10:00 10/01/23 09:45 10/01/23 09:45 10/01/23 09:30 10/01/23 09:30 10/01/23 09:15 10/01/23 09:15 10/01/23 09:01 10/01/23 09:00 10/01/23 08:45 10/01/23 08:45 10/01/23 08:30 10/01/23 08:30 10/01/23 08:30 60 100 10/01/23 08:16 10/01/23 08:16 10/01/23 08:15 10/01/23 08:00 10/01/23 08:00 10/01/23 08:00 10/01/23 07:45 10/01/23 07:45 10/01/23 07:30 10/01/23 07:30 60 10/01/23 05:15 10/01/23 05:15 10/01/23 05:00 10/01/23 05:00 10/01/23 04:45 10/01/23 04:45 10/01/23 04:30 10/01/23 04:30 10/01/23 04:15 10/01/23 04:15 10/01/23 04:00 10/01/23 04:00 10/01/23 03:45 10/01/23 03:45 10/01/23 03:45 65 10/01/23 03:30 10/01/23 03:15 10/01/23 03:15 10/01/23 03:00 10/01/23 03:00 10/01/23 02:45 10/01/23 02:45 Laboratory Results data reviewed Diagnostic Findings data reviewed PG Care Time/CCT Total # of Minutes Spent Total Time Spent: 115 Total Time Spent with Patient: Total time spent is greater than 50% in coordination of care (as documented) at patient's floor/unit and/or counseling patient: I spent 115 minutes overall addressing this case: 15 min in medical data review/discussion with referring provider(s) and/or preparation for the visit 25 min in direct interaction with the patient/exam 30 + 20 = 50 min in Advance Care Planning/Goals of Care discussions as detailed above in note (must be >16min) 10 min in subsequent review and synthesis of assessment and plan 15 min communicating with other providers regarding the patient's case: ccm, nursing [facility] Advanced Care Planning 89064 Advanced Care Planning 30 Min 18000 Advanced Care Planning Additional 30 Min [place] [address] SUB INP/OBS CARE 3/50MIN Patient Type Established History Comprehensive Exam Comprehensive Medical Decision Making High Complexity Diagnoses Dyspnea and respiratory abnormalities R06.00; R06.89 Weakness generalized R53.1 Advanced care planning/counseling discussion Z71.89 Muscular deconditioning R29.898 Declining performance status R53.81 Palliative care by specialist Z51.5 Acute hypoxic respiratory failure J96.01 Small cell lung cancer C34.90 Additional Codes Advanced Care Planning - 39125 Advanced Care Planning 30 Min: 76345 Advanced Care Planning 30 Min ([id number]) Advanced Care Planning - 97940 Advanced Care Planning Additional 30 Min: 69046 Advanced Care Planning Additional 30 Min ([id number])
--- NOTE | 2023-10-01 15:15 | Palliative Family Discussion ---
Date of Service October 01, 2023 Patient Directed Conference Time of Meetin-230pm Participants: Anais Woodward DNP Patient participation: yes Patient Support System: dtrs Unique Glass and Elda, grand daughter Chantelle, son Lonnie, grandson x1 Other Healthcare Provider Participation: None Meeting Location: family conf room and bedside with pt A family meeting was held for ANI GARCIA. This meeting was necessary for determining the appropriate course of treatment. Topics of Discussion Face to face meeting x 30min with pt daughters x 3 and grand daughter x1: Maria Luisa Unique (who recently moved in with Maria Luisa, they live in [place]) and Elda; grand daughter Chantelle is from [place], she is a new nurse who is working at [employer]. Maria Luisa is her Mom. Later in pt room, we were joined by pt, his son Lonnie and a grandson. First meeting held in family conference room with dtrs x3 and grand daughter x1 for 30min face to face. Reviewed all of the information from meeting yesterday per Maria Luisa's request and further discussed the clinical concerns of multi system failure due to the rapid progression of his cancer: lung, heart, renal. We discussed he is in an EOL process. This is not going to be curable, reversible or fixable. They shared that pt worked for [employer] for 36 years. His work was often top-secret and required security agreements, he traveled [place] the [place], [place], [place]. He was very ambitious and enjoyed being busy, liked problem solving and never felt there was not an problem he would not be able to fix. This mindset makes it hard for him to come to terms with his mortality. They all agree they want him to be comfortable. They agree they do not want him to suffer. They state he has had trouble accepting he does not have long but has been processing the information - for example, yesterday he spoke about wanting to live long enough to see grandkids achieve milestones but today said he just wants to live long enough to Friday to watch the [employer] match. We returned to pt room and met with pt, dtrs, grand dtr, son Lonnie and a grandson for another 20min face to face. Patient was able to tell me some accurate details about meeting yesterday but did begin to get some confusion about ten minutes into our conversation. He had some trouble following a lot of the detail. Sometimes it seemed he may also be having trouble hearing the discussion but when questions were repeated louder, he still seemed to have trouble processing the information. We discussed that his cancer is rapidly progressing. I told him we are worried he does not have much time. He agreed with me. I told him it was time to move to a more comfort focused plan of care, as there was more we could do to relief his symptoms burden even if we cannot cure or fix the underlying problem. He agreed with that option and said "that's what we'll do, it makes the most sense." He was more anxious about leaving the ICU feeling that he won't be "monitored" - I advised him we do not need monitors to determine if he is comfortable and we have meds available to provide relief on an as needed basis. I told him we still need to wean down the pressors and it is going to take some time to find a private room in hospital so for now he would remain in ICU until pressors are off and a private room is ready. I reviewed the focus of comfort care with symptom mgt, de escalating non essential and non comfort interventions, no more labs etc. He was in agreement. I encouraged him to let us know if there are things he would like to eat/drink, our focus is on assuring he has comfort/pleasure from his diet at this point and no restrictions are needed. Pt and family in agreement for comfort care They are looking forward to a more private room with liberalized visits. Dtrs would like to take turns staying overnight with pt, which I advised would be ok. They have notified additional family members and most are making their way here to visit. For now, move to comfort de escalate pressors DO NOT ESCALATE oxygen - use opioids as ordered for dyspnea mgt He will likely this admission Reviewed with family his resp muscles and WOB will weaken over time as this disease progresses, he will become more lethargic and sleepy/eventually comatose. We will de escalate HFNC at that time since it will not be adding to comfort or relief of symptoms. They are all in agreement and verbalized understanding. All questions were answered to their apparent satisfaction. CCM and nursing updated. * Dying process: Discussed changes pt may move through in the dying process including but not limited to sleeping more, disorientation when awake, restlessness, diminished senses/inability to respond to stimulus although ability to be aware of them remains intact longer, and changes in body temperatures, skin changes/mottling/cyanosis, respiratory pattern changes, and oral secretions. Family verbalized understanding. The goal is to assure a peaceful . * EOL Rally: When a person facing the end of life rallies, they seem to become "more stable" - may want to talk or even begin taking PO; this phenomenon is usually seen as a sudden burst of energy before . This period of perking up can be accompanied by such a notable change in mental clarity that is often referred to as terminal lucidity. This change in cognition and behavior goes against everything families learn about the physical signs that the end of life is near. It is important to note that evidence-based data is elusive, if nonexistent. Theories support that it may be a search for a final, strong connection. Also, as organs shut down, they can release a steroid like compound that briefly rouses the body - in the specific case of brain tumors, swelling occurs in the confined space of the skull. The edema shrinks as EOL care patients are weaned off food and drink, waking up the brain a bit. Families and caregivers may grasp at what seems to be a turnaround in a loved ones health, however, the EOL Rally is a hallmark pre- sign. It is not uncommon for patients to show improvement before : they may want to talk while others may become restless or act as if they need to start preparing for a trip. Some patients will become more relaxed yet remain tuned in to what is going on around them, others will show signs of physical stability when, seconds before, they seemed on the verge of letting go. A rally can last for a few moments or even days. Short or long, these temporary improvements can have a profound effect on loved ones who are keeping us. Like a moment of clarity for someone who has dementia, a rally is one last opportunity to connect with a loved one. Each persons experience is unique and impossible to predict with total accuracy. Life is full of questions, and some of them simply are not meant to be answered. Read more: https://[email or web address].com//well/vle-obfjclp-ih-fmq-fq-fqbt-emma s.html * Oxygen at EOL: For patients at the end of life, oxygen delivered by a nasal cannula provides no additional symptomatic benefit for relief of refractory dyspnea in patients with life-limiting illness compared with room air: there's a point at which that the oxygen level gets so low that it's no longer compatible with life. By providing supplemental oxygen, the dying process will be unnecessarily prolonged. Please use less burdensome but more effective strategies such as comfort care meds, oscillating fan, massage, repositioning, etc. (Miranda AP, Tamy CF, Mark PA, et al. Effect of palliative oxygen versus room air in relief of breathlessness in patients with refractory dyspnoea: a double-blind, randomised controlled trial. Lancet. 201 0;376(2539):833-518. doi:10.1016/Z2812-6538(66)70671-4) * Secretions at EOL/management: I discussed with family that as the level of consciousness decreases in the dying process, patients lose their ability to swallow and clear oral secretions. As air moves over the secretions, which have pooled in the oropharynx and bronchi, the resulting turbulence produces noisy ventilation with each breath, described as gurgling or rattling noises. While there is no evidence that patients find this rattle disturbing, evidence from bereaved surveys suggests the noises can be disturbing to the patients visitors and caregivers who may fear that the patient is choking to . We recommend a combination of Non- Pharmacological and Pharmacological Treatments: * 1. Position the patient on their side or in a semi-prone position to facilitate postural drainage * 2. Communication with family and caregivers to reaffirm commitment to their loves ones care, reduce anxiety and fears. * 3. Gentle oropharyngeal suctioning is used although this can be ineffective when fluids are beyond the reach of the catheter. Avoid deep suctioning as it is very irritating. Note that frequent suctioning is disturbing to both the patient and the visitors. * 4. Reduction of fluid intake. * 5. Consider a 1-2 min Trendelenburg positioning, to move fluids up into the oropharynx for easier removal BUT note that ASPIRATION RISK WILL INCREASE. * 6. Muscarinic receptor blockers (anti-cholinergic drugs) are most often used: glycopyrrolate (Robinul), scopolamine (Transderm Scop), hyoscyamine and atropine. Of these, I prefer to using glycopyrrolate as first line treatment, because it is a quaternary amine (therefore does not cross the blood-brain barrier) which reduces the potential anti cholinergic agent associated PRINTMAKER toxicity (sedation, delirium). * 7. Glycopyrrolate has five times the anti-secretory potency compared to atropine, while scopolamine dries/thickens secretions and causes dry mouth, which may be more distressing to the patient and detract from comfort. Time Involved in Meetin + 20, 2 meetings over this afternoon, total ACP su e 50min face to face Thank you for allowing us to participate in the ongoing care of this patient. Please don't hesitate to call or page with any additional concerns. Dr. Anais Woodward DNP Director, Palliative Care
[2023-10-01] MEDS ORDERED: cefTRIAXone SODIUM 2,000 MG in DEXTROSE 5 % MINI-B 50 ML IV SCH (17:00)
--- NOTE | 2023-10-01 18:37 | Hospitalist Progress Note ---
Date of Service October 01, 2023 Assessment & Plan (1) Acute hypoxic respiratory failure: Plan: Acute hypoxic respiratory failure, hypotension, metabolic acidosis with anion gap in a patient with a large plueral effusion. BP has been labile.Patient on pressors. On BIPAP, not improving. poor prognosis Patient is transitioned to comfort measures. (2) Small cell lung cancer: Plan: large pleural effusion, likely representing poor prognosis. (3) LINDA (acute kidney injury): Plan: creatinine is elevated, likely prerenal. IVF (4) Metabolic acidosis: Plan: likely from LINDA (5) Pleural effusion: Plan: large malignant plueral effusion noted on imaging Ultrasound guided right Pleurx catheter placed on day of admit (6) Hypothyroidism: Plan: continue levothyroxin (7) Atrial fibrillation, chronic: Plan: on amiodarone at home. will contiue (8) Benign essential hypertension: Plan: held home meds due to BP Admission and Anticipated Discharge Date Admission Date: September 29, 2023 Subjective Patient is comfortable on BIPAP Review of Systems Review of Systems: All systems reviewed & are unremarkable except as noted in HPI & below Physical Exam Physical Exam: Patient is lying in bed.on BIPAP Results & Data Results & Data Vital Signs (Past 12 Hours) Vital Signs Temp Pulse Pulse Resp BP Pulse Ox O2 Del Method 10/01/23 18:15 35.3 C L 65 18 86 L 10/01/23 18:15 86/51 L 10/01/23 18:00 89/49 L 10/01/23 18:00 35.4 C L 66 15 85 L 10/01/23 17:45 90/55 L 10/01/23 17:45 35.4 C L 67 17 86 L 10/01/23 17:30 95/49 L 10/01/23 17:30 35.5 C L 66 20 85 L 10/01/23 17:15 84/48 L 10/01/23 17:15 35.5 C L 67 15 85 L 10/01/23 17:00 103/56 L 10/01/23 17:00 35.6 C L 68 21 84 L 10/01/23 16:45 105/55 L 10/01/23 16:45 35.6 C L 69 18 85 L 10/01/23 16:38 68 20 82 L High Flow Nasal Cannula 10/01/23 16:30 35.6 C L 68 19 85 L 10/01/23 16:30 99/55 L 10/01/23 16:15 104/55 L 10/01/23 16:15 35.7 C L 68 18 85 L 10/01/23 16:00 92/76 L 10/01/23 16:00 35.7 C L 68 17 85 L 10/01/23 16:00 68 10/01/23 15:45 108/52 L 10/01/23 15:45 35.8 C L 69 20 81 L 10/01/23 15:30 102/51 L 10/01/23 15:30 35.8 C L 67 18 85 L 10/01/23 15:16 102/52 L 10/01/23 15:16 35.9 C L 67 19 84 L 10/01/23 15:15 35.8 C L 68 25 H 85 L 10/01/23 15:00 98/63 L 10/01/23 15:00 35.9 C L 67 18 85 L 10/01/23 14:45 35.9 C L 68 20 84 L 10/01/23 14:45 101/55 L 10/01/23 14:30 36.0 C L 68 21 85 L 10/01/23 14:30 104/55 L 10/01/23 14:15 36.0 C L 68 21 87 L 10/01/23 14:15 101/53 L 10/01/23 14:00 99/70 L 10/01/23 14:00 36.0 C L 68 20 86 L 10/01/23 13:45 105/63 10/01/23 13:45 36.0 C L 68 20 85 L 10/01/23 13:30 106/55 L 10/01/23 13:30 36.0 C L 66 19 84 L 10/01/23 13:15 98/56 L 10/01/23 13:15 36.0 C L 67 19 88 L 10/01/23 13:01 36.1 C L 67 18 83 L 10/01/23 13:01 104/53 L 10/01/23 13:00 36.1 C L 20 83 L 10/01/23 12:45 102/57 L 10/01/23 12:45 36.1 C L 68 20 86 L 10/01/23 12:30 36.1 C L 65 20 86 L 10/01/23 12:30 107/61 10/01/23 12:15 109/58 L 10/01/23 12:15 36.1 C L 68 20 85 L 10/01/23 12:00 107/53 L 10/01/23 12:00 36.1 C L 63 24 88 L 10/01/23 11:45 104/56 L 10/01/23 11:45 36.1 C L 65 19 87 L 10/01/23 11:30 107/59 L 10/01/23 11:30 36.1 C L 67 20 89 L 10/01/23 11:15 36.2 C L 66 21 86 L 10/01/23 11:12 66 20 86 L High Flow Nasal Cannula 10/01/23 11:12 100 H 20 8 L High Flow Nasal Cannula 10/01/23 11:00 93/72 L 10/01/23 11:00 36.2 C L 80 21 87 L 10/01/23 10:45 107/55 L 10/01/23 10:45 36.3 C L 65 20 91 10/01/23 10:30 110/64 10/01/23 10:30 36.3 C L 65 23 90 10/01/23 10:15 118/55 L 10/01/23 10:15 36.3 C L 66 20 88 L 10/01/23 10:00 105/58 L 10/01/23 10:00 36.3 C L 66 27 H 87 L 10/01/23 09:45 113/58 L 10/01/23 09:45 36.3 C L 68 22 91 10/01/23 09:30 36.4 C L 65 22 90 10/01/23 09:30 113/58 L 10/01/23 09:15 106/58 L 10/01/23 09:15 36.4 C L 66 19 89 L 10/01/23 09:01 36.5 C 69 24 88 L 10/01/23 09:00 36.5 C 69 21 88 L 10/01/23 08:45 110/58 L 10/01/23 08:45 36.5 C 69 23 87 L 10/01/23 08:30 107/57 L 10/01/23 08:30 36.6 C 66 24 86 L 10/01/23 08:30 66 17 89 L High Flow Nasal Cannula 10/01/23 08:16 103/62 10/01/23 08:16 36.6 C 66 21 83 L 10/01/23 08:15 36.6 C 66 23 82 L 10/01/23 08:00 102/54 L 10/01/23 08:00 36.6 C 64 21 90 10/01/23 08:00 65 10/01/23 07:45 122/65 10/01/23 07:45 36.6 C 64 23 90 10/01/23 07:30 36.6 C 63 15 94 10/01/23 07:30 High Flow Nasal Cannula, Non-rebreather O2 Flow Rate FiO2 10/01/23 18:15 10/01/23 18:15 10/01/23 18:00 10/01/23 18:00 10/01/23 17:45 10/01/23 17:45 10/01/23 17:30 10/01/23 17:30 10/01/23 17:15 10/01/23 17:15 10/01/23 17:00 10/01/23 17:00 10/01/23 16:45 10/01/23 16:45 10/01/23 16:38 60 100 10/01/23 16:30 10/01/23 16:30 10/01/23 16:15 10/01/23 16:15 10/01/23 16:00 10/01/23 16:00 10/01/23 16:00 10/01/23 15:45 10/01/23 15:45 10/01/23 15:30 10/01/23 15:30 10/01/23 15:16 10/01/23 15:16 10/01/23 15:15 10/01/23 15:00 10/01/23 15:00 10/01/23 14:45 10/01/23 14:45 10/01/23 14:30 10/01/23 14:30 10/01/23 14:15 10/01/23 14:15 10/01/23 14:00 10/01/23 14:00 10/01/23 13:45 10/01/23 13:45 10/01/23 13:30 10/01/23 13:30 10/01/23 13:15 10/01/23 13:15 10/01/23 13:01 10/01/23 13:01 10/01/23 13:00 10/01/23 12:45 10/01/23 12:45 10/01/23 12:30 10/01/23 12:30 10/01/23 12:15 10/01/23 12:15 10/01/23 12:00 10/01/23 12:00 10/01/23 11:45 10/01/23 11:45 10/01/23 11:30 10/01/23 11:30 10/01/23 11:15 10/01/23 11:12 60 100 10/01/23 11:12 60 100 10/01/23 11:00 10/01/23 11:00 10/01/23 10:45 10/01/23 10:45 10/01/23 10:30 10/01/23 10:30 10/01/23 10:15 10/01/23 10:15 10/01/23 10:00 10/01/23 10:00 10/01/23 09:45 10/01/23 09:45 10/01/23 09:30 10/01/23 09:30 10/01/23 09:15 10/01/23 09:15 10/01/23 09:01 10/01/23 09:00 10/01/23 08:45 10/01/23 08:45 10/01/23 08:30 10/01/23 08:30 10/01/23 08:30 60 100 10/01/23 08:16 10/01/23 08:16 10/01/23 08:15 10/01/23 08:00 10/01/23 08:00 10/01/23 08:00 10/01/23 07:45 10/01/23 07:45 10/01/23 07:30 10/01/23 07:30 60 PG Care Time/CCT Total # of Minutes Spent Total Time Spent with Patient: Total time spent is greater than 50% in coordination of care (as documented) at patient's floor/unit and/or counseling patient: Coding Level of Care Code 93500 SUB INP/OBS CARE 235MIN Diagnoses Acute hypoxic respiratory failure J96.01 Small cell lung cancer C34.90 LINDA (acute kidney injury) N17.9 Metabolic acidosis E87.20 Pleural effusion J90 Hypothyroidism E03.9 Atrial fibrillation, chronic I48.20 Benign essential hypertension I10
--- NOTE | 2023-10-02 02:50 | Death Pronouncement Note ---
Date of Service October 02, 2023 Pronouncement Note Admission Date Admission Date: September 29, 2023 Date and Time of Date of : 10/02/23 Time of : 02:34 Contributing Factors (1) Acute hypoxic respiratory failure: (2) Small cell lung cancer: (3) LINDA (acute kidney injury): (4) Metabolic acidosis: (5) Pleural effusion: (6) Hypothyroidism: (7) Atrial fibrillation, chronic: (8) Benign essential hypertension: Summary Additional details: I was called to pronounce the of Gurvinder Ren ( 47) by nursing on 10/02/23. Upon entering the room, patient was found to be in a terminal state. They were unresponsive to and did not withdrawal from verbal or tactile stimuli. They were unresponsive to corneal, pupillary, and oculocephalic reflexes. On cardiopulmonary exam, they were found to be without detectable carotid pulses. and without spontaneous heart tones or respirations. Time of was pronounced by me on 10/02/23 at 02:34. worksheet was completed by me. Attending physician was notified. Next of kin was at bedside at time of brett yang's passing. Singed: Marce Pierce D.O., PGY-2 Additional Data Attending physician: Laureano Ray MD
--- NOTE | 2023-10-03 09:31 | Discharge Summary ---
Date of Service October 02, 2023 Admission HPI Per Admitting Provider This is a 77 yo male wo is a poor historian due to his difficulty to hearing. 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 Patient presents to the ED with weakness and SOB. Patient had a fall and was unable to return back to a chair. IN the ED, patient had labile blood pressure, lactic acidosis, metabolic acidosis with anion gap. Patient treated emipirically with antibioitcs and fluid resuscitation. ICU admission was called. Principal Diagnosis Small cell lung cancer Discharge Exam review on note Discharge Data Allergies Allergy/AdvReac Type Severity Reaction Status Date / Time No Known Drug Allergies Allergy Verified 09/29/23 17:14 Consultations 09/29/23 07:43 ED Decision to Admit Stat 09/29/23 08:43 Consult Hot Dip Tinning Supervisor Routine 09/29/23 15:53 Consult Oncology Routine Consult Radiation Oncology Routine 09/30/23 08:48 Consult Palliative Care Routine Ordered Studies 09/29/23 10:31 CT chest diagnostic wo con Stat Hospital Course (1) Acute hypoxic respiratory failure: Acute hypoxic respiratory failure, hypotension, metabolic acidosis with anion gap in a patient with a large plueral effusion. BP has been labile.Patient on pressors. On BIPAP, not improving. poor prognosis Patient is transitioned to comfort measures. Patient on 10/02/23 (2) Small cell lung cancer: large pleural effusion, likely representing poor prognosis. (3) LINDA (acute kidney injury): creatinine is elevated, likely prerenal. was treated with IVF (4) Metabolic acidosis: likely from LINDA (5) Pleural effusion: large malignant plueral effusion noted on imaging Ultrasound guided right Pleurx catheter placed on day of admit (6) Hypothyroidism: continue levothyroxin (7) Atrial fibrillation, chronic: on amiodarone at home. will contiue (8) Benign essential hypertension: held home meds due to BP Total Time Total Time Spent Total Time Spent (In Minutes): 5 Discharge Plan Discharge Items Patient Disposition: Other Date/Time: 10/02/23 02:10 Coding Level of Care Code None Diagnoses Acute hypoxic respiratory failure J96.01 Small cell lung cancer C34.90 LINDA (acute kidney injury) N17.9 Metabolic acidosis E87.20 Pleural effusion J90 Hypothyroidism E03.9 Atrial fibrillation, chronic I48.20 Benign essential hypertension I10
== END 2023-10-02 02:50 | disposition expired | DRG 180 ==
LOC: ED 06:34 → EDINP 08:43 → SUATTDRO 08:43 → EDINP 08:58 → 1E 10:16 → 3W 10-01 19:42